=== PATIENT | male | born 1980 | race Caucasian/White ===

== ENCOUNTER 2020-01-01 16:45 | Inpatient (IN) ==
[2020-01-01] MEDS ORDERED: IOPAMIDOL 100 ML BOTTLE IV ONE (16:46)
[2020-01-01] MEDS ORDERED: ONDANSETRON 4 MG/2 ML VIAL IV ONE (17:10)
[2020-01-01] MEDS ORDERED: 0.9 % SODIUM CHLORIDE 2,000 ML IV ONE (17:10)
[2020-01-01] MEDS ORDERED: PANTOPRAZOLE 40 MG VIAL IV ONE ×2 (17:10→17:42)
--- NOTE | 2020-01-01 17:13 | Emergency Department Note ---
Abdominal Pain HPI General Chief Complaint: Abdominal Pain Stated Complaint: abd pain, nausea, vomiting, black stools Time Seen by Provider: 01/01/20 17:01 Source: patient Mode of arrival: ambulatory Limitations: no limitations History of Present Illness HPI Narrative: Narrative: 39-year-old male comes in complaining of severe central abdominal pain starting today. He has had dark stools but not clear if it was melena. No hematochezia. Vomiting as well with green bilious vomit. He did have a few drinks last night but he typically has a few drinks every week. History of chronic kidney disease and type 2 diabetes noted on his chart. He does see nephrology. Denies trauma. Denies fever recent illness. Denies previous internal belly surgery except panniculectomy after substantial weight loss Related Data Previous Rx's Medication Instructions Recorded albuterol sulfate 90 mcg/actuation 2 inh INHALATION Q4H PRN #1 g 10/06/17 aerosol inhaler Allergies Allergy/AdvReac Type Severity Reaction Status Date / Time adhesive tape Allergy Intermediate Rash Verified 01/01/20 16:55 Review of Systems ROS ROS Narrative: Narrative: All systems ED: reviewed and negative except as stated. [facility] Narrative Patient History Narrative: Narrative: Medical/Surgical/Family History All Active Problems (Updated 01/01/20 @ 19:26 by Franklyn Villalpando MD) SBO (small bowel obstruction) (Acute) Persistent proteinuria (Chronic) Visit for suture removal (Acute) Chronic kidney disease, stage 2 (mild) (Chronic) Chronic gastritis (Acute) Cyclical vomiting (Acute) Sinusitis (Acute) Dizziness (Acute) Hypotension (Acute) Fatty liver (Acute) Infected wound (Acute) Anxiety (Acute) Methicillin resistant Staphylococcus aureus infection (Acute) Cellulitis (Acute) Wound healing, delayed (Acute) Postoperative pain (Acute) Accidental drug ingestion (Acute) Dizziness on standing (Acute) Strain of mid-back (Acute) Encounter for Health Maintenance Examination in Adult (Chronic) Numbness and tingling in both hands (Chronic) Foot pain, bilateral (Chronic) Nausea & vomiting (Chronic) Right hand pain (Acute) Migraine (Acute) Gastroenteritis (Acute) GERD (gastroesophageal reflux disease) (Acute) Abdominal pain (Acute) Bloody stools (Acute) High potassium (Chronic) Tobacco abuse (Chronic) Vitamin D deficiency (Chronic) Abdominal pain (Chronic) Disorder of back (Chronic) Knee pain (Chronic) Derangement of knee (Chronic) GERD (gastroesophageal reflux disease) (Chronic) Moderate persistent asthma (Chronic) Allergic rhinitis (Chronic) 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) Benign hypertension (Chronic) Partial seizure (Chronic) Morbid obesity (Chronic) Hyperlipidemia (Chronic) Type II diabetes mellitus (Chronic) Hypothyroidism (Chronic) Low back strain (Chronic) Medical History (Updated 01/01/20 @ 19:26 by Franklyn Villalpando MD) Abdominal pain (Chronic) Abscess (Resolved) Abscess (Resolved) Abscess (Resolved) Abscess and cellulitis (Resolved) Abscess of skin and subcutaneous tissue (Resolved) Abscess of skin or subcutaneous tissue (Resolved) Allergic rhinitis (Chronic) Anal fissure (Resolved) Arthralgia of right knee (Resolved) Benign hypertension (Chronic) Bronchitis (Resolved) Chest pain (Resolved) Contusion (Resolved) Contusion of ribs (Resolved) Costalchondritis (Resolved) Costochondritis (Resolved) Derangement of knee (Chronic) Disorder of back (Chronic) Eczema (Resolved) Encounter for Health Maintenance Examination in Adult (Chronic) 06/22/17 Facial ringworm (Resolved) Foot pain, bilateral (Chronic) Gastroenteritis (Resolved) GERD (gastroesophageal reflux disease) (Chronic) High potassium (Chronic) Hyperlipidemia (Chronic) Hypothyroidism (Chronic) Knee pain (Chronic) Low back strain (Chronic) Lumbar spine strain (Resolved) Moderate persistent asthma (Chronic) Morbid obesity (Chronic) Nausea & vomiting (Chronic) Nausea and vomiting in adult patient (Resolved) Non-cardiac chest pain (Resolved) Numbness and tingling in both hands (Chronic) Partial seizure (Chronic) Sinusitis (Resolved) Symptomatic hypotension (Resolved) Type II diabetes mellitus (Chronic) Upper respiratory infection (Resolved) Urticaria (Resolved) 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) Vitamin D deficiency (Chronic) Surgical History (Updated 01/01/20 @ 19:26 by Franklyn Villalpando MD) History of colonoscopy (Chronic 11/27/16) No pertinent past surgical history (Inactive) Status post panniculectomy (Acute) Family History Other No pertinent family history Social History Smoking Status: Current every day smoker Alcohol Intake Frequency: holiday/special occasion only Substance Use: marijuana Exam Narrative Narrative: Narrative: Writhing in pain clutching his stomach. No diaphoresis. He is alert oriented able to answer questions appropriately. No nasal discharge or congestion. Oropharynx is pink and moist. No dysarthria. Heart is regular rate and rhythm. No murmur appreciated. Lungs are clear to auscultation bilate rally without wheezes rales rhonchi or respiratory distress. Abdomen is firm as he is tightening it. I cannot get him to relax. Some guarding. Is difficult to get a good abdomen exam on him secondary to patient cooperation. No pedal edema. +2 radial pulse. General Limitations: no limitations Course Vital Signs Vital signs: Vital Signs Temperature 98.6 F 01/01/20 16:49 Pulse Rate 92 H 01/01/20 16:49 Respiratory Rate 24 H 01/01/20 16:49 Blood Pressure 150/106 01/01/20 16:49 Pulse Oximetry (%) 98 01/01/20 16:49 Temperature 98.6 F 01/01/20 16:49 Pulse Rate 75 01/01/20 19:02 Respiratory Rate 16 01/01/20 19:02 Blood Pressure 136/82 01/01/20 19:02 Pulse Oximetry (%) 93 01/01/20 19:02 [facility] MDM Narrative Medical decision making narrative: Narrative: He does seem to be in significant abdominal pain. I am unable to get a good exam secondary to patient cooperation. Start IV fluids Dilaudid for pain and Zofran for nausea. We will go ahead and get CT scan of the abdomen pelvis and laboratory for work-up. If his laboratory shows evidence of GI bleed we will do a rectal exam. At this time we will give him Protonix and start Protonix drip-as gastritis ulcer is leading differential. Other items in the differential include bowel obstruction pancreatitis malignancy liver disease gallbladder disease etc. No leukocytosis or anemia. BUN is stable comparable to previous-no evidence of GI bleed. CT scan shows small bowel obstruction-it is noted the patient has no history of prior belly surgeries. Will consult surgery Discussed the case with Dr. Tiburcio Hinton. He recommended NG tube. He will place orders and accepted the patient for further care and evaluation in the hospital. He plans on seeing the patient tomorrow morning or earlier if needed. I discussed the situation with the patient as well. He is agreeable with coming in the hospital. He continues to be in pain Lab Data Lab results reviewed: Yes I reviewed the patient's lab results. Result diagrams: 01/01/20 17:23 01/01/20 17: Labs: Lab Results 01/01/20 01/01/20 01/01/20 Range/Units 17: 17: 17: WBC 10.2 (4.50-11.00) K/mcL RBC 5.40 (4.63-6.08) M/mcL Hgb 16.8 (13.7-17.5) g/dL Hct 48.5 (40.1-51.0) % MCV 89.8 (80.0-100.0) fL MCH 31.1 (26.0-34.0) pg MCHC 34.6 (31.0-36.0) g/dL RDW 12.9 (11.5-14.5) % Plt Count 259 (140-440) K/mcL MPV 9.5 (7.4-10.4) fL Gran % 65.6 (38.0-78.0) % Lymph % (Auto) 22.6 (15.5-49.0) % Crawford % (Auto) 10.4 (1.0-12.0) % Eos % (Auto) 0.9 (0.0-7.0) % Baso % (Auto) 0.5 (0.0-2.0) % Gran # 6.66 (1.80-8.00) K/mcL Lymph # (Auto) 2.29 (1.50-4.80) K/mcL Crawford # (Auto) 1.06 H (0.10-0.90) K/mcL Eos # (Auto) 0.09 (0.00-0.70) K/mcL Baso # (Auto) 0.05 (0.00-0.30) K/mcL VBG Lactic Acid 0.8 (0.5-2.0) mmol/L Sodium 137 (133-145) mmol/L Potassium 3.8 (3.3-5.1) mmol/L Chloride 97 (96-108) mmol/L Carbon Dioxide 26 (22-30) mmol/L Anion Gap 14.0 (8-16) BUN 22 H (6-20) mg/dl Creatinine 1.3 H (0.7-1.2) mg/dl GFR Calculation 69 Glucose 100 (70-105) mg/dL Calcium 9.6 (8.6-10.4) mg/dl Total Bilirubin 0.9 (0.0-1.0) mg/dL AST 34 (0-37) U/l ALT 28 (0-40) U/l Alkaline Phosphatase 70 (39-117) U/L Total Protein 7.2 (5.9-8.4) gm/dL Albumin 4.2 (3.2-5.2) gm/dL Globulin 3.0 (2.2-3.7) gm/dL Albumin/Globulin Ratio 1.4 (1.0-2.3) Amylase 70 (28-100) U/L Lipase 18 (7-60) U/L Radiology Data Radiology results reviewed: Yes I reviewed the patient's radiology results. Radiology results narrative: CT scan of the abdomen pelvis shows small bowel obstruction with transition point in the jejunum Discharge Plan Patient/Caregiver Discharge Instructions Pt seen by TEACHING SUPERVISOR/PA only: No Clinical Impression: SBO (small bowel obstruction) Patient Disposition: Xfer As Inpt ([facility]) Condition: Fair Follow up with: César Gambino DO [Primary Care Provider] - Prescriptions: No Action albuterol sulfate 90 mcg/actuation HFA aerosol inhaler 2 inh INHALATION Q4H PRN (Reason: Shortness Of Breath Or Wheezing) Qty: 1 RF: 6
[2020-01-01] MEDS ORDERED: PANTOPRAZOLE 80 MG in 0.9 % SODIUM CHLORIDE 100 ML IV SCH (17:15)
[2020-01-01] MEDS ORDERED: 0.9 % SODIUM CHLORIDE 100 ML IV ONE ×2 (17:35→20:21)
[2020-01-01 17:41] LABS: Basophils # (Auto) 0.05 K/mcL (0.00-0.30); Basophils % (Auto) 0.5 % (0.0-2.0); Eosinophils # (Auto) 0.09 K/mcL (0.00-0.70); Eosinophils % (Auto) 0.9 % (0.0-7.0); Granulocytes % (Auto) 65.6 % (38.0-78.0); Hematocrit 48.5 % (40.1-51.0); Hemoglobin 16.8 g/dL (13.7-17.5); Lymphocytes # (Auto) 2.29 K/mcL (1.50-4.80); Lymphocytes % (Auto) 22.6 % (15.5-49.0); Mean Cell Volume 89.8 fL (80.0-100.0); Mean Corpuscular HGB Conc 34.6 g/dL (31.0-36.0); Mean Platelet Volume 9.5 fL (7.4-10.4); Monocytes # (Auto) 1.06 K/mcL (0.10-0.90); Monocytes % (Auto) 10.4 % (1.0-12.0); Platelet Count 259 K/mcL (140-440); Red Cell Distribution Width 12.9 % (11.5-14.5); WBC 10.2 K/mcL (4.50-11.00)
[2020-01-01] MEDS: HYDROmorphone 0.5 MG/0.5 ML SYRINGE IV PRN ×3 (17:44→19:45)
[2020-01-01 17:57] LABS: ALT/SGPT 28 U/l (0-40); AST/SGOT 34 U/l (0-37); Albumin 4.2 gm/dL (3.2-5.2); Albumin/Globulin Ratio 1.4 (1.0-2.3); Alkaline Phosphatase 70 U/L (39-117); Amylase 70 U/L (28-100); Bilirubin,Total 0.9 mg/dL (0.0-1.0); Blood Urea Nitrogen 22 mg/dl (6-20); Calcium 9.6 mg/dl (8.6-10.4); Carbon Dioxide 26 mmol/L (22-30); Chloride 97 mmol/L (96-108); Glomerular Filtration Rate 69; Glucose 100 mg/dL (70-105)
--- NOTE | 2020-01-01 18:35 | Cat Scan Report ---
INDICATION: severe abdominal pain. bilious vomit.melena COMPARISON: Previous CT scan dated 10/11/2016 TECHNIQUE: Axial images were obtained through the abdomen and pelvis. Sagittally and coronally reformatted images. 70 mL Isovue 370 injected intravenously. Oral contrast material was not administered FINDINGS: Lung bases:Negative. No pulmonary parenchymal nodule. No pleural fluid or pericardial fluid Liver:Negative. No focal intrahepatic mass. No focal abnormality. Liver contour is smooth. No evidence for cirrhosis Gallbladder, bilary:No calcified gallstones. No gallbladder wall thickening. No dilated intra or extrahepatic bile ducts. Spleen:No splenomegaly. Normal enhancement of splenic and portal veins. Pancreas:No pancreatic mass. No peripancreatic abnormality Adrenal glands:Negative Kidneys, ureters, bladder:No solid or cystic renal mass. No hydronephrosis. No obstructing calculi. There is no hydroureter. No ureteral stone No bladder calculi or detectable mass Gastrointestinal:Mildly dilated fluid-filled stomach. Duodenum is dilated and fluid-filled. The jejunum is also dilated and fluid filled. Jejunum measures approximately 4.5 cm in cross-sectional diameter. The ileum is collapsed. Transitional point is difficult to identify. There is small bowel feces within the jejunum. I believe the transition point is just to the right of midline in the lower abdomen. There is no evidence for closed loop obstruction. No findings of bowel ischemia. Normal enhancement of the small bowel wall is demonstrated. I'm not given a history of previous surgery. Clinical correlation is necessary. Colon is normal. No colonic dilatation. There is fecal material within the colon. No diverticulitis. No diverticular abscess. Appendix: The appendix is not well visualized. No evidence for appendicitis Vascular:Negative abdominal aorta. Superior mesenteric artery and celiac trunk are normal. Normal opacification of the inferior mesenteric artery Lymphatic:No retroperitoneal or mesenteric adenopathy Mesentery, peritoneum: No free intraperitoneal fluid. No mesenteric or retroperitoneal mass. There is no pneumoperitoneum. Reproductive:Prostate is not enlarged Musculoskeletal:No acute compression fracture. Sacrum and pelvis are negative. Hips are negative IMPRESSION: 1. Small bowel obstruction with dilated jejunum and small bowel feces sign 2. Transition point appears to be just to the right of midline lower abdomen. Clinical correlation for previous surgery recommended 3. No closed-loop obstruction. No evidence for bowel ischemia. 4. No free pelvic fluid. No pneumoperitoneum The exam was performed using radiation dose optimization techniques including, but not limited to, automated exposure control, adjustment of the mA and/or kV according to patient size and use of iterative reconstruction technique. Interpreted and Authenticated by: Saul Khan 01/01/20
[2020-01-01] MEDS ORDERED: OXYMETAZOLINE 1 SPRAY BOTTLE NAS PRN (20:14)
[2020-01-01] MEDS ORDERED: LIDOCAINE JEL 2% 1 TUBE 5ML TOPICAL ONE (20:15)
[2020-01-01] MEDS ORDERED: LORazepam 2 MG/ML VIAL IV ONE (20:48)
[2020-01-01] MEDS ORDERED: PROCHLORPERAZINE 10 MG/2 ML VIAL IV PRN (20:50)
[2020-01-01] MEDS ORDERED: LORazepam 2 MG/ML VIAL IV PRN ×2 (20:50→21:30)
[2020-01-01] MEDS ORDERED: METHOCARBAMOL 1,000 MG/10 ML VIAL IV PRN (20:50)
[2020-01-01] MEDS ORDERED: LEVOFLOXACIN 750 MG/150 ML BAG IV SCH (21:30)
[2020-01-01] MEDS ORDERED: ONDANSETRON 4 MG/2 ML VIAL IV PRN (21:30)
[2020-01-01] MEDS ORDERED: ALBUTEROL SULFATE 200 PUFF INHALER INH PRN (21:37)
[2020-01-01 21:45] LABS: Appearance,Urine CLEAR; Bacteria,Urine 0 /hpf (0); Bilirubin,Urine NEG (NEG); Color,Urine YELLOW; Culture Indicated,Urine NO; Glucose,Urine (UA) NEGATIVE (NEG); Ketones,Urine 5/TR mg/dL (NEG); Leukocyte Esterase,Urine NEG /uL (NEG); Nitrate,Urine NEG (NEG); Protein,Urine >=500 mg/dL (NEG); Urine Blood 0.03 mg/dL (<0.03); Urine RBC 5 /hpf (0-1); Urine Squamous Epithelial Cell < 1 /hpf (0-4); Urine WBC 1 /hpf (0-4); Urobilinogen,Urine NEG (NEG)
[2020-01-01] MEDS: LEVOFLOXACIN 750 MG/150 ML BAG IV SCH (22:06)
[2020-01-01] MEDS: 0.9 % SODIUM CHLORIDE 1,000 ML IV SCH (22:06)
[2020-01-01 22:08] LABS: Amphetamine Screen,Urine NONE DETECTED (NONDETECTED); Barbiturate Screen,Urine NONE DETECTED (NONDETECTED); Benzodiazepines Screen,Urine NONE DETECTED (NONDETECTED); Cannabinoid Screen,Urine SUSPECT POSITIVE (NONDETECTED); Cocaine Screen,Urine SUSPECT POSITIVE (NONDETECTED); Opiate Screen,Urine SUSPECT POSITIVE (NONDETECTED); Oxycodone, Urine Screen NONE DETECTED (NONDETECTED); Phencyclidine Screen,Urine NONE DETECTED (NONDETECTED)
[2020-01-01] MEDS ORDERED: BENZOCAINE 1 SPRAY BOTTLE TOPICAL PRN (22:10)
[2020-01-01] MEDS ORDERED: HYDROmorphone 1 MG/ML SYRINGE ONE (22:27)
[2020-01-01] MEDS: HYDROmorphone 1 MG/ML SYRINGE IV PRN (22:40)
[2020-01-01] MEDS: METOCLOPRAMIDE 10 MG/2 ML VIAL IV SCH (23:47)
[2020-01-02] MEDS ORDERED: HYDROmorphone 1 MG/ML SYRINGE ONE (03:57)
[2020-01-02] MEDS: HYDROmorphone 1 MG/ML SYRINGE IV PRN ×8 (04:02→23:28)
[2020-01-02] MEDS: 0.9 % SODIUM CHLORIDE 1,000 ML IV SCH ×3 (04:02→18:47)
[2020-01-02] MEDS: METOCLOPRAMIDE 10 MG/2 ML VIAL IV SCH ×4 (05:39→23:29)
--- NOTE | 2020-01-02 06:06 | XRay Report ---
INDICATION: for post NG placement TECHNIQUE: Supine abdomen. COMPARISON: Previous CT scan dated 01/01/2020. Previous abdomen dated 04/28/2017 FINDINGS:Esophagogastric tube with its tip in the stomach. There is dilated gas-filled small bowel in the upper abdomen. IMPRESSION: Esophagogastric tube in the stomach Interpreted and Authenticated by: Saul Khan 01/02/20
[2020-01-02 06:10] LABS: Basophils # (Auto) 0.05 K/mcL (0.00-0.30); Basophils % (Auto) 0.6 % (0.0-2.0); Eosinophils # (Auto) 0.24 K/mcL (0.00-0.70); Eosinophils % (Auto) 2.9 % (0.0-7.0); Granulocytes % (Auto) 63.9 % (38.0-78.0); Hematocrit 44.1 % (40.1-51.0); Hemoglobin 14.6 g/dL (13.7-17.5); Lymphocytes % (Auto) 20.6 % (15.5-49.0); Mean Cell Volume 93.8 fL (80.0-100.0); Mean Corpuscular HGB Conc 33.1 g/dL (31.0-36.0); Mean Platelet Volume 9.5 fL (7.4-10.4); Monocytes # (Auto) 0.99 K/mcL (0.10-0.90); Platelet Count 206 K/mcL (140-440); Red Cell Distribution Width 13.1 % (11.5-14.5); WBC 8.2 K/mcL (4.50-11.00)
[2020-01-02] MEDS: PANTOPRAZOLE 40 MG VIAL IV SCH ×2 (07:04→21:44)
[2020-01-02 07:13] LABS: ALT/SGPT 20 U/l (0-40); AST/SGOT 22 U/l (0-37); Albumin 3.4 gm/dL (3.2-5.2); Albumin/Globulin Ratio 1.4 (1.0-2.3); Alkaline Phosphatase 53 U/L (39-117); Bilirubin,Direct 0.2 mg/dL (0.0-0.3); Bilirubin,Total 0.9 mg/dL (0.0-1.0); Calcium 8.4 mg/dl (8.6-10.4); Carbon Dioxide 24 mmol/L (22-30); Chloride 103 mmol/L (96-108); Globulin 2.4 gm/dL (2.2-3.7); Glomerular Filtration Rate 85; Glucose 96 mg/dL (70-105); Lactate Dehydrogenase 168 U/L (94-250); Phosphorous 2.7 mg/dL (2.7-4.5); Triglycerides 83 mg/dl (<150); Uric Acid 6.4 mg/dL (2.5-8.0)
[2020-01-02 07:17] LABS: Blood Urea Nitrogen 17 mg/dl (6-20)
[2020-01-02] MEDS ORDERED: DIATRIZOATE MEGLU/DIATRIZO SOD 30 ML BOTTLE PO ONE ×2 (09:43→17:05)
[2020-01-02] MEDS ORDERED: NICOTINE 21 MG PATCH TOPICAL SCH (10:00)
--- NOTE | 2020-01-02 14:23 | General Surg History&Physical ---
HPI History of Present Illness Patient information: Note initiated : 01/02/20 at 2:11 pm Service Date, if different from initiated Date: [facility] Patient: Yinka Lee 39 y/o M admitted on 01/01/20 for abd pain, nausea, vomiting, black stools. Chief Complaint: [] Chief complaint: Crampy abdominal pain with nausea and vomiting History of present illness: Mr. Lee is a 39 year old M admitted with bowel obstruction. The patient had onset of mid abdominal pain with associated bloating on Thursday. It became progressively worse and he has had nausea with vomiting since Thursday. His last bowel movement was dark and tarry on Thursday morning. He has not had recent passage of flatus. Patient seen in the emergency room and CT suggests obstruction of the distal jejunum with decompression of the ileum. He is in severe distress and will have a trial at nasogastric decompression with small bowel follow-through. He has not had any intra-abdominal operations. He does have a history of severe weight loss with over 400 pounds being lost. He had a partial abdominoplasty for a large pannus but no other surgery. Review of Systems All systems: reviewed and no additional remarkable complaints except as stated (No complaints except for that which is noted in the history of present illness) PFSH PFSH All Active Problems SBO (small bowel obstruction) (Acute) Persistent proteinuria (Chronic) Visit for suture removal (Acute) Chronic kidney disease, stage 2 (mild) (Chronic) Chronic gastritis (Acute) Cyclical vomiting (Acute) Sinusitis (Acute) Dizziness (Acute) Hypotension (Acute) Fatty liver (Acute) Infected wound (Acute) Anxiety (Acute) Methicillin resistant Staphylococcus aureus infection (Acute) Cellulitis (Acute) Wound healing, delayed (Acute) Postoperative pain (Acute) Accidental drug ingestion (Acute) Dizziness on standing (Acute) Strain of mid-back (Acute) Encounter for Health Maintenance Examination in Adult (Chronic) Numbness and tingling in both hands (Chronic) Foot pain, bilateral (Chronic) Nausea & vomiting (Chronic) Right hand pain (Acute) Migraine (Acute) Gastroenteritis (Acute) GERD (gastroesophageal reflux disease) (Acute) Abdominal pain (Acute) Bloody stools (Acute) High potassium (Chronic) Tobacco abuse (Chronic) Vitamin D deficiency (Chronic) Abdominal pain (Chronic) Disorder of back (Chronic) Knee pain (Chronic) Derangement of knee (Chronic) GERD (gastroesophageal reflux disease) (Chronic) Moderate persistent asthma (Chronic) Allergic rhinitis (Chronic) 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) Benign hypertension (Chronic) Partial seizure (Chronic) Morbid obesity (Chronic) Hyperlipidemia (Chronic) Type II diabetes mellitus (Chronic) Hypothyroidism (Chronic) Low back strain (Chronic) Medical History Abdominal pain (Chronic) Abscess (Resolved) Abscess (Resolved) Abscess (Resolved) Abscess and cellulitis (Resolved) Abscess of skin and subcutaneous tissue (Resolved) Abscess of skin or subcutaneous tissue (Resolved) Allergic rhinitis (Chronic) Anal fissure (Resolved) Arthralgia of right knee (Resolved) Benign hypertension (Chronic) Bronchitis (Resolved) Chest pain (Resolved) Contusion (Resolved) Contusion of ribs (Resolved) Costalchondritis (Resolved) Costochondritis (Resolved) Derangement of knee (Chronic) Disorder of back (Chronic) Eczema (Resolved) Encounter for Health Maintenance Examination in Adult (Chronic) 06/22/17 Facial ringworm (Resolved) Foot pain, bilateral (Chronic) Gastroenteritis (Resolved) GERD (gastroesophageal reflux disease) (Chronic) High potassium (Chronic) Hyperlipidemia (Chronic) Hypothyroidism (Chronic) Knee pain (Chronic) Low back strain (Chronic) Lumbar spine strain (Resolved) Moderate persistent asthma (Chronic) Morbid obesity (Chronic) Nausea & vomiting (Chronic) Nausea and vomiting in adult patient (Resolved) Non-cardiac chest pain (Resolved) Numbness and tingling in both hands (Chronic) Partial seizure (Chronic) Sinusitis (Resolved) Symptomatic hypotension (Resolved) Type II diabetes mellitus (Chronic) Upper respiratory infection (Resolved) Urticaria (Resolved) 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) Vitamin D deficiency (Chronic) Surgical History History of colonoscopy (Chronic 11/27/16) No pertinent past surgical history (Inactive) Status post panniculectomy (Acute) Family History (Updated 01/02/20 @ 14:17 by Allie Hinton MD) Mother No problems noted. Father No pertinent family history Social History (Updated 01/02/20 @ 14:18 by Allie Hinton MD) smoking status: Current every day smoker tobacco type: cigarettes per day: 8 alcohol intake frequency: holiday/special occasion only substance use type: marijuana MEDS/ALLERGIES Home Medications and Allergies Home Medications Medication Instructions Recorded Confirmed Type albuterol sulfate 90 mcg/actuation 2 inh INHALATION Q4H PRN #1 g 10/06/17 01/01/20 Rx aerosol inhaler magnesium citrate [Citrate of 300 ml PO QDAY PRN #296 ml 01/04/20 Rx Magnesia] oxycodone 10 mg PO QID PRN #60 tab 01/04/20 Rx Allergies Allergy/AdvReac Type Severity Reaction Status Date / Time adhesive tape Allergy Intermediate Rash Verified 01/01/20 16:55 Physical Examination Vital Signs Vital signs: Temp Pulse Resp BP Pulse Ox 97.9 F 78 20 155/97 97 01/02/20 12:00 01/02/20 12:00 01/02/20 12:00 01/02/20 12:00 01/02/20 12:00 General physical appearance General physical exam: well developed, well nourished, severe distress and severe pain Eyes Eye exam: PERRL and normal ocular movement; negative deviation and loss of movement ENT ENT exam: normal pinna, normal nares, normal mucosa, no hearing loss and no congestion; negative decreased hearing Head Head exam IM: Present atraumatic, normal inspection and normocephalic Neck Neck exam: no masses, no bruits, trachea midline, no lymphadenopathy and no venous distension Cardiovascular Cardiovascular exam IM: Present normal rate and rhythm, RRR, +S1 and +S2; Absent JVD Cardiovascular: Bilateral lower extremity varicosities much worse on the right than on the left Respiratory Respiratory exam: normal expansion, normal respiratory effort, clear to percussion and clear to auscultation Abdomen Abdomen: Present soft, tender and bowel sounds (Hyperactive bowel sounds) Integumentary Integumentary: Present no rash, no growths, no abnormal pigmentation and other (Redundant skin and extremities and trunk due to weight loss) Neurologic Neurologic: Present normal coordination and normal sensation; Absent disoriented Musculoskeletal Musculoskeletal: Present normal gait, normal posture and other Psychiatric Psychiatric: Present oriented to time, oriented to person, oriented to place, speech is normal and memory intact Results Labs Result diagrams: 01/04/20 05:20 01/04/20 05:20 Labs: Abnormal lab results 01/01/20 01/01/20 01/01/20 Range/Units 17:23 17:23 20:10 Pierce # (Auto) 1.06 H (0.10-0.90) K/mcL BUN 22 H (6-20) mg/dl Creatinine 1.3 H (0.7-1.2) mg/dl Calcium (8.6-10.4) mg/dl Total Protein (5.9-8.4) gm/dL Urine Protein (NEG) mg/dL Urine Ketones (NEG) mg/dL Urine Occult Blood (<0.03) mg/dL Urine RBC (0-1) /hpf Urine Opiates Screen Suspect positive A (NONDETECTED) Urine Cocaine Screen Suspect positive A (NONDETECTED) U Marijuana (THC) Screen Suspect positive A (NONDETECTED) 01/01/20 01/02/20 01/02/20 Range/Units 20:11 05:15 05:15 Pierce # (Auto) 0.99 H (0.10-0.90) K/mcL BUN (6-20) mg/dl Creatinine (0.7-1.2) mg/dl Calcium 8.4 L (8.6-10.4) mg/dl Total Protein 5.8 L (5.9-8.4) gm/dL Urine Protein >=500 A (NEG) mg/dL Urine Ketones 5/tr A (NEG) mg/dL Urine Occult Blood 0.03 A (<0.03) mg/dL Urine RBC 5 H (0-1) /hpf Urine Opiates Screen (NONDETECTED) Urine Cocaine Screen (NONDETECTED) U Marijuana (THC) Screen (NONDETECTED) Diabetes panel 01/01/20 01/02/20 Range/Units 17:23 05:15 Sodium 137 139 (133-145) mmol/L Potassium 3.8 3.5 (3.3-5.1) mmol/L Chloride 97 103 (96-108) mmol/L Carbon Dioxide 26 24 (22-30) mmol/L BUN 22 H 17 (6-20) mg/dl Creatinine 1.3 H 1.1 (0.7-1.2) mg/dl Glucose 100 96 (70-105) mg/dL Calcium 9.6 8.4 L (8.6-10.4) mg/dl AST 34 22 (0-37) U/l ALT 28 20 (0-40) U/l Alkaline Phosphatase 70 53 (39-117) U/L Total Protein 7.2 5.8 L (5.9-8.4) gm/dL Albumin 4.2 3.4 (3.2-5.2) gm/dL Triglycerides 83 (<150) mg/dl Calcium panel 01/01/20 01/02/20 Range/Units 17:23 05:15 Calcium 9.6 8.4 L (8.6-10.4) mg/dl Phosphorus 2.7 (2.7-4.5) mg/dL Albumin 4.2 3.4 (3.2-5.2) gm/dL Pituitary panel 01/01/20 01/02/20 Range/Units 17: 05:15 Sodium 137 139 (133-145) mmol/L Potassium 3.8 3.5 (3.3-5.1) mmol/L Chloride 97 103 (96-108) mmol/L Carbon Dioxide 26 24 (22-30) mmol/L BUN 22 H 17 (6-20) mg/dl Creatinine 1.3 H 1.1 (0.7-1.2) mg/dl Glucose 100 96 (70-105) mg/dL Calcium 9.6 8.4 L (8.6-10.4) mg/dl Adrenal panel 01/01/20 01/02/20 Range/Units 17:23 05:15 Sodium 137 139 (133-145) mmol/L Potassium 3.8 3.5 (3.3-5.1) mmol/L Chloride 97 103 (96-108) mmol/L Carbon Dioxide 26 24 (22-30) mmol/L BUN 22 H 17 (6-20) mg/dl Creatinine 1.3 H 1.1 (0.7-1.2) mg/dl Glucose 100 96 (70-105) mg/dL Calcium 9.6 8.4 L (8.6-10.4) mg/dl Total Bilirubin 0.9 0.9 (0.0-1.0) mg/dL AST 34 22 (0-37) U/l ALT 28 20 (0-40) U/l Alkaline Phosphatase 70 53 (39-117) U/L Total Protein 7.2 5.8 L (5.9-8.4) gm/dL Albumin 4.2 3.4 (3.2-5.2) gm/dL All other labs normal. A/P Assessment and plan (1) SBO (small bowel obstruction): Status: Acute (2) Chronic kidney disease, stage 2 (mild): Status: Chronic (3) Anxiety: Status: Acute (4) GERD (gastroesophageal reflux disease): Status: Acute (5) Type II diabetes mellitus: Status: Chronic Qualifiers: Diabetes mellitus complication status: without complication Diabetes mellitus terminal manager insulin use: without mcc use Qualified Code(s): E11.9 - Type 2 diabetes mellitus without complications Narrative A/P Narrative: Patient will have nasogastric decompression Small bowel follow-through will be done on 02 January 2020 If this is not successful he will have exploratory laparotomy Time Spent With Patient Time: Total time spent is greater than 50% in coordination of care (as documented) at patient's floor/unit and/or counseling patient:
--- NOTE | 2020-01-02 14:25 | General Surgery Progress Note ---
SUBJECTIVE Subjective Patient information: Note initiated : 01/02/20 at 2:23 pm Service Date, if different from initiated Date: [] Patient: Yinka Lee 39 y/o M admitted on 01/01/20 for abd pain, nausea, vomiting, black stools. Chief Complaint: [] Interval history: Small bowel follow-through shows no transit through jejunum after 4hours. The patient had emesis of over 2 L of fluid. He is counseled for urgent laparotomy which will be performed as soon as possible. Constitutional Vitals: Vital Signs Temp Pulse Resp BP Pulse Ox 97.9 F 78 20 155/97 97 01/02/20 12:00 01/02/20 12:00 01/02/20 12:00 01/02/20 12:00 01/02/20 12:00 Period Temp Pulse Resp BP Sys/Madrid Pulse Ox Last 24 Hr 97.9 F-98.8 F 62-92 0-24 134-175/79-117 73-100 Intake and Output 01/02/20 01/02/20 01/02/20 05:59 13:59 21:59 Intake Total 1140 60 Output Total 1900 955 Balance -760 -895 Weight 251 lb 8 oz Intake & Output: Intake & Output 01/02/20 01/02/20 01/02/20 05:59 13:59 21:59 Intake Total 1140 60 Output Total 1900 955 Balance -760 -895 Weight 251 lb 8 oz Intake: IV 890 Sodium Chloride 0.9% 1,000 ml @ 890 150 mls/hr IV .Q6H40M [facility] Rx#: [id number] Oral 250 60 Tube Feeding 0 0 Output: Gastric Drainage 500 480 Craig-Sump 500 480 Void Amount 1400 475 Other: Urine Appearance Clear Urine Color Bright Yellow Straw Urine Odor Normal Normal A/P Assessment and plan (1) SBO (small bowel obstruction): Status: Acute (2) Chronic kidney disease, stage 2 (mild): Status: Chronic (3) GERD (gastroesophageal reflux disease): Status: Chronic Qualifiers: Esophagitis presence: without esophagitis Qualified Code(s): K21.9 - Gastro-esophageal reflux disease without esophagitis Narrative A/P Narrative: Patient is counseled for exploratory laparotomy which will be performed later this afternoon. Time Spent With Patient Time: Total time spent is greater than 50% in coordination of care (as documented) at patient's floor/unit and/or counseling patient:
[2020-01-02] MEDS ORDERED: metroNIDAZOLE 500 MG/100 ML BAG IV SCH (15:00)
[2020-01-02] MEDS ORDERED: DEXAMETHASONE 10 MG/ML VIAL IV ONE (15:33)
[2020-01-02] MEDS ORDERED: LIDOCAINE HCL/PF 100 MG/5 ML SYRINGE IV ONE (15:33)
[2020-01-02] MEDS ORDERED: GLYCOPYRROLATE 0.2 MG/ML VIAL IV ONE (15:33)
[2020-01-02] MEDS ORDERED: KETAMINE 100 MG/ML ML IV ONE (15:33)
[2020-01-02] MEDS ORDERED: ROCURONIUM 10 MG/ML ML IV ONE (15:33)
[2020-01-02] MEDS ORDERED: PROPOFOL 200 MG/20 ML VIAL IV ONE (15:33)
[2020-01-02] MEDS ORDERED: ONDANSETRON 4 MG/2 ML VIAL IV ONE (15:33)
[2020-01-02] MEDS ORDERED: MIDAZOLAM 2 MG/2 ML VIAL IV ONE (15:33)
[2020-01-02] MEDS ORDERED: fentaNYL 100 MCG/2 ML VIAL IV ONE (15:33)
--- NOTE | 2020-01-02 15:37 | XRay Report ---
INDICATION: Follow-up with small bowel obstruction TECHNIQUE: Water-soluble contrast material was placed in the stomach via a nasogastric tube. Serial imaging to 4 hours post ingestion performed COMPARISON: Previous CT scan dated 01/01/2020 FINDINGS: Stomach is mildly distended. Small bowel is distended with delayed passage of contrast material. Jejunum measures 6 cm in cross-sectional diameter. At 4 hours post ingestion entire small bowel is not opacified. Appearance is consistent with chemical small bowel obstruction. There is no contrast material within the colon. IMPRESSION: Mechanical small bowel obstruction is Interpreted and Authenticated by: Saul Khan 01/02/20
[2020-01-02] MEDS ORDERED: FLUMAZENIL 0.1 MG/ML ML IV PRN ×2 (16:13→17:05)
[2020-01-02] MEDS ORDERED: NALOXONE HCL 0.4 MG/ML VIAL IV PRN ×2 (16:13→17:05)
[2020-01-02] MEDS ORDERED: METHOCARBAMOL 1,000 MG/10 ML VIAL IV PRN ×2 (16:13→17:05)
[2020-01-02] MEDS ORDERED: METOPROLOL TARTRATE 5 MG/5 ML VIAL IV PRN ×2 (16:13→17:05)
[2020-01-02] MEDS ORDERED: IPRATROPIUM/ALBUTEROL 3 ML AMPUL.NEB NEB PRN ×2 (16:13→17:05)
[2020-01-02] MEDS ORDERED: ACETAMINOPHEN 1,000 MG/100 ML BOTTLE IV ONE (16:13)
[2020-01-02] MEDS ORDERED: LABETALOL 5 MG/ML ML IV PRN ×2 (16:13→17:05)
[2020-01-02] MEDS ORDERED: LACTATED RINGERS 250 ML IV PRN ×2 (16:13→17:05)
[2020-01-02] MEDS ORDERED: LACTATED RINGERS 1,000 ML IV SCH ×2 (16:15→17:05)
[2020-01-02] MEDS: MEPERIDINE 25 MG/ML SYRINGE IV PRN ×2 (16:45→16:50)
--- NOTE | 2020-01-02 16:47 | Brief Operative Note ---
Brief Operative Note Date of procedure: 01/02/20 Pre-op diagnosis: small bowel obstruction Post-op diagnosis: other (small bowel obstruction due to inspissated stool; no adhesions or masses of lumen) Procedure: exploratory laparotomy Grafts/Implants: No Anesthesia: GETA Findings: very thick inspissated stool of distal jejunum without evidence of structural abnormality Complications: none Surgeon: Allie Hinton Estimated blood loss (cc): 5 Specimens Removed/Pathology: none sent Condition: stable Disposition: PACU
[2020-01-02] MEDS: fentaNYL 100 MCG/2 ML VIAL IV PRN ×4 (16:50→16:56)
[2020-01-02] MEDS ORDERED: ALBUTEROL SULFATE 200 PUFF INHALER INH PRN (17:05)
[2020-01-02] MEDS ORDERED: ONDANSETRON 4 MG/2 ML VIAL IV PRN (17:05)
[2020-01-02] MEDS ORDERED: MEPERIDINE 25 MG/ML SYRINGE IV PRN (17:05)
[2020-01-02] MEDS ORDERED: IOPAMIDOL 100 ML BOTTLE IV ONE (17:05)
[2020-01-02] MEDS ORDERED: fentaNYL 100 MCG/2 ML VIAL IV PRN (17:05)
[2020-01-02] MEDS ORDERED: OXYMETAZOLINE 1 SPRAY BOTTLE NAS PRN (17:05)
[2020-01-02] MEDS ORDERED: BENZOCAINE 1 SPRAY BOTTLE TOPICAL PRN (17:05)
[2020-01-02] MEDS: METHOCARBAMOL 1,000 MG/10 ML VIAL IV PRN ×2 (17:40→23:28)
[2020-01-02] MEDS: LORazepam 2 MG/ML VIAL IV PRN ×2 (18:45→23:28)
[2020-01-02] MEDS: LEVOFLOXACIN 750 MG/150 ML BAG IV SCH (19:30)
[2020-01-02] MEDS: metroNIDAZOLE 500 MG/100 ML BAG IV SCH (23:33)
[2020-01-03] MEDS: 0.9 % SODIUM CHLORIDE 1,000 ML IV SCH ×5 (01:12→21:39)
[2020-01-03] MEDS: HYDROmorphone 1 MG/ML SYRINGE IV PRN ×9 (03:46→21:36)
[2020-01-03] MEDS: METHOCARBAMOL 1,000 MG/10 ML VIAL IV PRN (05:36)
[2020-01-03] MEDS: METOCLOPRAMIDE 10 MG/2 ML VIAL IV SCH ×3 (05:36→17:26)
[2020-01-03] MEDS: metroNIDAZOLE 500 MG/100 ML BAG IV SCH ×3 (06:04→17:30)
[2020-01-03 06:42] LABS: Basophils # (Auto) 0.02 K/mcL (0.00-0.30); Basophils % (Auto) 0.2 % (0.0-2.0); Eosinophils # (Auto) 0 K/mcL (0.00-0.70); Eosinophils % (Auto) 0 % (0.0-7.0); Granulocytes % (Auto) 80.1 % (38.0-78.0); Hematocrit 47.3 % (40.1-51.0); Hemoglobin 15.3 g/dL (13.7-17.5); Lymphocytes # (Auto) 1.16 K/mcL (1.50-4.80); Lymphocytes % (Auto) 8.8 % (15.5-49.0); Mean Cell Volume 96.5 fL (80.0-100.0); Mean Corpuscular HGB Conc 32.3 g/dL (31.0-36.0); Mean Platelet Volume 9.8 fL (7.4-10.4); Monocytes # (Auto) 1.44 K/mcL (0.10-0.90); Monocytes % (Auto) 10.9 % (1.0-12.0); Platelet Count 216 K/mcL (140-440); Red Cell Distribution Width 13.2 % (11.5-14.5); WBC 13.2 K/mcL (4.50-11.00)
[2020-01-03 07:03] LABS: Chloride 102 mmol/L (96-108)
[2020-01-03 07:04] LABS: ALT/SGPT 21 U/l (0-40); AST/SGOT 35 U/l (0-37); Albumin 3.3 gm/dL (3.2-5.2); Albumin/Globulin Ratio 1.2 (1.0-2.3); Alkaline Phosphatase 53 U/L (39-117); Bilirubin,Direct < 0.2 mg/dL (0.0-0.3); Bilirubin,Total 0.8 mg/dL (0.0-1.0); Blood Urea Nitrogen 18 mg/dl (6-20); Calcium 8.6 mg/dl (8.6-10.4); Carbon Dioxide 21 mmol/L (22-30); Globulin 2.7 gm/dL (2.2-3.7); Glomerular Filtration Rate 76; Glucose 95 mg/dL (70-105); Lactate Dehydrogenase 330 U/L (94-250); Phosphorous 3.6 mg/dL (2.7-4.5); Triglycerides 78 mg/dl (<150); Uric Acid 6.4 mg/dL (2.5-8.0)
[2020-01-03] MEDS: PANTOPRAZOLE 40 MG VIAL IV SCH ×2 (07:11→17:31)
--- NOTE | 2020-01-03 07:20 | XRay Report ---
INDICATION: f/u of small bowel obstruction TECHNIQUE: Supine and upright abdomen. COMPARISON: Preoperative small bowel study dated 01/02/2020 FINDINGS:Esophagogastric tube within the stomach. Postsurgical pneumoperitoneum. There are skin pat in a vertical midline incision. There continues to be contrast material within the small bowel. Small bowel dilatation is improved. No definite contrast material within the colon. IMPRESSION: 1. Postsurgical pneumoperitoneum 2. Improved bowel gas pattern. Contrast material is not identified within the colon Interpreted and Authenticated by: Saul Khan 01/03/20
[2020-01-03] MEDS: NICOTINE 21 MG PATCH TOPICAL SCH (09:46)
[2020-01-03] MEDS: LEVOFLOXACIN 750 MG/150 ML BAG IV SCH (09:46)
[2020-01-03] MEDS: POLYETHYLENE GLYCOL 3350 17 GM PACKET PO SCH ×4 (10:58→16:23)
--- NOTE | 2020-01-03 15:09 | General Surgery Progress Note ---
SUBJECTIVE Subjective Patient information: Note initiated : 01/03/20 at 3:02 pm Service Date, if different from initiated Date: [] Patient: Yinka Lee 39 y/o M admitted on 01/01/20 for abd pain, nausea, vomiting, black stools. Chief Complaint: [] Principal diagnosis: partial small bowel obstruction Interval history: patient states that he is improved. He states that he has passed flatus but he has not had bowel movement since surgery. He has been on MiraLAX 3 doses. He complains of some abdominal distention. His pain is not as severe as yesterday. Constitutional Vitals: Vital Signs Temp Pulse Resp BP Pulse Ox 99.7 F H 84 18 158/95 97 01/03/20 12:00 01/03/20 12:00 01/03/20 12:00 01/03/20 12:00 01/03/20 12:00 Period Temp Pulse Resp BP Sys/Madrid Pulse Ox Last 24 Hr 97.0 F-99.7 F 79-128 16-24 126-195/71-103 92-100 Intake and Output 01/03/20 01/03/20 01/03/20 05:59 13:59 21:59 Intake Total 420 2450 240 Output Total 2125 1800 Balance -1705 650 240 Weight 254 lb Patient Weight 01/04/20 05:59 Weight 254 lb Intake & Output: Intake & Output 01/03/20 01/03/20 01/03/20 05:59 13:59 21:59 Intake Total 420 2450 240 Output Total 2125 1800 Balance -1705 650 240 Weight 254 lb Intake: IV 100 1045 Sodium Chloride 0.9% 1,000 ml @ 945 150 mls/hr IV .Q6H40M COUNT INCLUDES THE [facility] Rx#: [id number] Oral 320 1405 240 Tube Feeding 0 Output: Gastric Drainage 1500 1300 [place]-Sump 1500 1300 Void Amount 625 500 Other: Urine Appearance Clear Urine Color Light Karen Dark Yellow Urine Odor Strong Head Head exam: Present atraumatic, normal inspection and normocephalic Eye Eye exam: Present EOMI and normal appearance Pupils: Present PERRL ENT ENT exam: Present normal exam, normal external ear exam and normal oropharynx Neck Neck exam: Present full ROM and normal inspection; Absent tenderness Respiratory Respiratory exam: Present normal respiratory exam and CTAB; Absent rales, rhonchi and wheezes Cardiovascular Cardiovascular exam: Present normal rate and rhythm, RRR, +S1 and +S2; Absent JVD GI/Abdominal GI/Abdominal exam: Present soft, diminished bowel sounds, distended and tenderness (moderate incisional tenderness); Absent organomegaly Extremities Exam Extremities exam: Present normal inspection and neurovascular intact; Absent pedal edema and tenderness Back Exam Back exam: Present full ROM; Absent tenderness Neurological Exam Neurological exam: Present abnormal gait, alert, CN II-XII intact, motor sensory deficit and oriented X3; Absent normal gait and reflexes normal Psychiatric Psychiatric exam: Present anxious, flat affect and normal affect Skin Skin exam: Present normal color and warm A/P Assessment and plan (1) SBO (small bowel obstruction): Status: Acute (2) Chronic kidney disease, stage 2 (mild): Status: Chronic (3) Postoperative pain: Status: Acute (4) GERD (gastroesophageal reflux disease): Status: Acute Narrative A/P Narrative: discontinue nasogastric tube Continue MiraLAX Small bowel x-rays in the morning Time Spent With Patient Time: Total time spent is greater than 50% in coordination of care (as documented) at patient's floor/unit and/or counseling patient:
[2020-01-03] MEDS: LORazepam 2 MG/ML VIAL IV PRN (22:34)
[2020-01-04] MEDS: METHOCARBAMOL 1,000 MG/10 ML VIAL IV PRN (00:10)
[2020-01-04] MEDS: METOCLOPRAMIDE 10 MG/2 ML VIAL IV SCH ×3 (00:10→11:33)
[2020-01-04] MEDS: metroNIDAZOLE 500 MG/100 ML BAG IV SCH ×3 (00:11→11:33)
[2020-01-04] MEDS: HYDROmorphone 1 MG/ML SYRINGE IV PRN ×6 (00:11→13:42)
[2020-01-04] MEDS: 0.9 % SODIUM CHLORIDE 1,000 ML IV SCH ×5 (00:20→15:22)
--- NOTE | 2020-01-04 06:40 | XRay Report ---
INDICATION: f/u of small bowel obstruction TECHNIQUE: Supine and upright abdomen. COMPARISON: Previous examinations dated 01/03/2020, 01/02/2020, 01/01/2020 FINDINGS:Esophagogastric tube in stomach. There is water-soluble contrast material within the colon from previous small bowel study dated 01/02/2020 There is small bowel gas and mild small bowel prominence. Findings may be secondary to postoperative ileus. There is no significant mechanical obstruction. There is persistent pneumoperitoneum considered postsurgical IMPRESSION: 1. Contrast material throughout the colon 2. Persistent mild prominence of the small bowel as above 3. Pneumoperitoneum likely postsurgical Interpreted and Authenticated by: Saul Khan 01/04/20
[2020-01-04 07:05] LABS: Basophils # (Auto) 0.05 K/mcL (0.00-0.30); Basophils % (Auto) 0.6 % (0.0-2.0); Eosinophils # (Auto) 0.11 K/mcL (0.00-0.70); Eosinophils % (Auto) 1.3 % (0.0-7.0); Granulocytes % (Auto) 67.8 % (38.0-78.0); Hematocrit 44.5 % (40.1-51.0); Mean Cell Volume 95.9 fL (80.0-100.0); Mean Corpuscular HGB Conc 31.5 g/dL (31.0-36.0); Mean Platelet Volume 9.7 fL (7.4-10.4); Monocytes # (Auto) 1.03 K/mcL (0.10-0.90); Monocytes % (Auto) 12.3 % (1.0-12.0); Platelet Count 195 K/mcL (140-440); RBC 4.64 M/mcL (4.63-6.08); Red Cell Distribution Width 13.2 % (11.5-14.5); WBC 8.4 K/mcL (4.50-11.00)
[2020-01-04 07:48] LABS: ALT/SGPT 15 U/l (0-40); AST/SGOT 23 U/l (0-37); Albumin/Globulin Ratio 1.2 (1.0-2.3); Alkaline Phosphatase 45 U/L (39-117); Bilirubin,Direct 0.2 mg/dL (0.0-0.3); Bilirubin,Total 0.9 mg/dL (0.0-1.0); Blood Urea Nitrogen 15 mg/dl (6-20); Calcium 8.2 mg/dl (8.6-10.4); Carbon Dioxide 25 mmol/L (22-30); Chloride 106 mmol/L (96-108); Globulin 2.5 gm/dL (2.2-3.7); Glomerular Filtration Rate 76; Glucose 101 mg/dL (70-105); Lactate Dehydrogenase 209 U/L (94-250); Triglycerides 84 mg/dl (<150); Uric Acid 5.8 mg/dL (2.5-8.0)
[2020-01-04 07:50] LABS: Phosphorous 2.2 mg/dL (2.7-4.5)
[2020-01-04] MEDS: LEVOFLOXACIN 750 MG/150 ML BAG IV SCH (08:20)
[2020-01-04] MEDS: PANTOPRAZOLE 40 MG VIAL IV SCH (08:20)
[2020-01-04] MEDS: NICOTINE 21 MG PATCH TOPICAL SCH (10:03)
[2020-01-04] MEDS ORDERED: MAGNESIUM CITRATE 300 ML ORAL.SOL PO ONE ×2 (10:34→12:00)
--- NOTE | 2020-01-04 12:11 | Operative Note ---
DATE OF OPERATION: 01/02/2020 PREOPERATIVE DIAGNOSIS: Small bowel obstruction. POSTOPERATIVE DIAGNOSIS: Small bowel obstruction due to inspissated stool and small bowel without other mechanical obstructions, no adhesions, masses, etc. PROCEDURE: Exploratory laparotomy. SURGEON: Allie Hinton M.D. DESCRIPTION OF PROCEDURE: Under general anesthesia, the patient's abdomen was prepped and draped in a sterile field. A midline incision was made. Abdomen was explored and the small bowel was eviscerated. The proximal bowel down to the distal jejunum was filled with very thick, firm, inspissated stool and the distal jejunum and the ileum were totally decompressed. There was some soft stool in the right colon, but no other abnormality was noted. The entire bowel was run from the ligament of Treitz to the ileocecal valve. Since there was no evidence of mechanical obstruction except for the stool, I gently milked the major portion of the inspissated stool down into the right colon. There did not appear to be any evidence of intraluminal obstruction and there were no palpable masses. Nasogastric tube was positioned at the stomach. Sponge, needle, instrument and blade counts were verified as correct. Fascia was closed with running #1 Prolene. Subcutaneous tissue was closed with 2-0 Monocryl. The skin was closed with pat. The patient tolerated the procedure well. He was awakened and transferred to a bed and taken to the postanesthetic care unit in stable, satisfactory condition. LCS:april Job ID: [id number] Doc ID: [id number] Allie Hinton M.D.
--- NOTE | 2020-01-04 14:00 | Discharge Summary ---
Discharge Provider Provider Patient information: Note initiated : 01/04/20 at 1:56 pm Service Date, if different from initiated Date: [] Patient: Yinka Lee 39 y/o M admitted on 01/01/20 for abd pain, nausea, vomiting, black stools. Chief Complaint: [] Date of admission: 01/01/20 21:51 Discharge date: 01/04/20 Primary care physician: César Gambino DO Admitting clinician: Allie Hinton Attending physician on admission: Allie Hinton Consults: 01/02/20 10:32 Consult to Physician [CONS] Routine Comment: Consulting Provider: Allie Hinton Reason For Exam: Physician to Consult Attending physician on discharge: Allie Hinton Discharging clinician: Allie Hinton COURSE Hospital Course Hospital course: 39-year-old male admitted on 01 January with complaint of severe abdominal pain with bloating. Symptoms were acute in onset and became progressively worse. This was followed with nausea and vomiting on Thursday. He had dark tarry bowel movements. He was seen in the emergency room and CT suggests obstruction of the distal jejunum. He was treated with nasogastric decompression for about 12 hours and then had a small bowel follow-through. The contrast did not progress past the mid jejunum after 4 hours so exploratory laparotomy was done. The left laparotomy revealed severe inspissated stool in the entire jejunum but without any mechanical obstruction otherwise. I was able to milk most of the pasty stool into the cecum. X-rays this morning shows the contrast to be in the colon but he still has some proximal small bowel dilation. He is passing flatus. Patient has some personal difficulties at home and relates that he needs to be discharge. Since he is not at the point where he s hould be clinically discharged he is advised that he can sign out AMA and I will see him back in the OFFICE or hospital if he should worsen. He is to take citrate of magnesia one bottle daily until he starts to have regular bowel movements. Discharge diagnosis: small bowel obstruction Secondary discharge diagnosis: chronic kidney disease Gastroesophageal reflux disease Type 2 diabetes mellitus. Reason for admission: small bowel obstruction with nausea and vomiting Procedures: exploratory laparotomy Pertinent studies/significant findings: CT of abdomen and pelvis with contrast Gastrografin small bowel follow-through Complications: 9 Time Spent with Patient Time attestation: Total time spent providing and/or coordinating discharge services: Physical Examination Vital Signs Vital signs: Temp Pulse Resp BP Pulse Ox 99.3 F H 88 18 169/105 97 01/04/20 11:46 01/04/20 11:46 01/04/20 11:46 01/04/20 11:46 01/04/20 11:46 General physical appearance General physical exam: well developed, well nourished, severe distress and severe pain Eyes Eye exam: PERRL and normal ocular movement; negative deviation and loss of movement ENT ENT exam: normal pinna, normal nares, normal mucosa, no hearing loss and no congestion; negative decreased hearing Head Head exam IM: Present atraumatic, normal inspection and normocephalic Neck Neck exam: no masses, no bruits, trachea midline, no lymphadenopathy and no venous distension Cardiovascular Cardiovascular exam IM: Present normal rate and rhythm, RRR, +S1 and +S2; Absent JVD Cardiovascular: Bilateral lower extremity varicosities much worse on the right than on the left Respiratory Respiratory exam: normal expansion, normal respiratory effort, clear to percussion and clear to auscultation Abdomen Abdomen: Present soft, tender, bowel sounds (Hyperactive bowel sounds) and wound (midline surgical incision is unremarkable) Integumentary Integumentary: Present no rash, no growths, no abnormal pigmentation and other (Redundant skin and extremities and trunk due to weight loss) Neurologic Neurologic: Present normal coordination and normal sensation; Absent disoriented Musculoskeletal Musculoskeletal: Present normal gait, normal posture and other Psychiatric Psychiatric: Present oriented to time, oriented to person, oriented to place, speech is normal and memory intact Discharge Plan Patient/Caregiver Discharge Instructions Activity: increase activity as tolerated and resume usual activities as tolerated Diet: Clear Liquid Prescriptions: New magnesium citrate [Citrate of Magnesia] Solution 300 ml PO QDAY PRN (Reason: constipation) Qty: 296 RF: 3 oxycodone 10 mg tablet 10 mg PO QID PRN (Reason: pain) Qty: 60 RF: 0 Continued albuterol sulfate 90 mcg/actuation HFA aerosol inhaler 2 inh INHALATION Q4H PRN (Reason: Shortness Of Breath Or Wheezing) Qty: 1 RF: 6 Follow Up Plan Follow up with: César Gambino DO [Primary Care Provider] - Allie Hinton MD [Physician] - (Patient to make appointment with me in 1 week) Patient Disposition: Home, Self-Care Prognosis: Good Rehab Potential: Good I certify that the patient requires SNF services: No Overall status at discharge: patient is progressing back to baseline Discharge Orders: Discharge Order (Routine); Ordered 01/04/20 Ordered By: Allie Hinton Pending Pending Pending: Diet NPO Diet (NOW) Start ThuDec 31 2125 Hydromorphone HCl (Dilaudid) 1 mg IV Q2HP PRN; Protocol PRN Reason: Per Pain Protocol Last Admin: 01/04/20 13:42 Dose: 1 mg Documented by: Admin: 01/04/20 10:37 Dose: 1 mg Documented by: Admin: 01/04/20 08:20 Dose: 1 mg Documented by: Admin: 01/04/20 05:26 Dose: 1 mg Documented by: Admin: 01/04/20 03:34 Dose: 1 mg Documented by: Admin: 01/04/20 00:11 Dose: 1 mg Documented by: Admin: 01/03/20 21:36 Dose: 1 mg Documented by: Admin: 01/03/20 19:25 Dose: 1 mg Documented by: Admin: 01/03/20 17:30 Dose: 1 mg Documented by: Admin: 01/03/20 15:16 Dose: 1 mg Documented by: Admin: 01/03/20 12:55 Dose: 1 mg Documented by: Admin: 01/03/20 09:50 Dose: 1 mg Documented by: Admin: 01/03/20 07:32 Dose: 1 mg Documented by: Admin: 01/03/20 05:37 Dose: 1 mg Documented by: Admin: 01/03/20 03:46 Dose: 1 mg Documented by: Admin: 01/02/20 23:28 Dose: 1 mg Documented by: Admin: 01/02/20 21:00 Dose: 1 mg Documented by: Admin: 01/02/20 18:44 Dose: 1 mg Documented by: MIRYAM Sodium Chloride (Sodium Chloride 0.9%) 1,000 mls @ 150 mls/hr IV .Q6H40M [facility] Admin: 01/04/20 11:34 Dose: 150 mls/hr Documented by: Admin: 01/04/20 10:02 Dose: Not Given Documented by: Infusion: 01/04/20 07:01 Dose: 150 mls/hr Documented by: Admin: 01/04/20 03:33 Dose: Not Given Documented by: Admin: 01/04/20 00:20 Dose: 150 mls/hr Documented by: Infusion: 01/04/20 00:06 Dose: 150 mls/hr Documented by: Admin: 01/03/20 21:39 Dose: Not Given Documented by: Admin: 01/03/20 17:25 Dose: 150 mls/hr Documented by: Infusion: 01/03/20 17:20 Dose: 0 mls/hr Documented by: RianXF Admin: 01/03/20 07:30 Dose: 150 mls/hr Documented by: Infusion: 01/03/20 07:30 Dose: 150 mls/hr Documented by: Admin: 01/03/20 01:12 Dose: 150 mls/hr Documented by: Admin: 01/02/20 18:47 Dose: Not Given Documented by: MIRYAM Levofloxacin (Levaquin) 750 mg in 150 mls @ 100 mls/hr IV DAILY [place]; Protocol Last Infusion: 01/04/20 09:50 Dose: 0 mls/hr Documented by: Admin: 01/04/20 08:20 Dose: 100 mls/hr Documented by: Infusion: 01/03/20 11:16 Dose: 100 mls/hr Documented by: Admin: 01/03/20 09:46 Dose: 100 mls/hr Documented by: CALEB Metronidazole (Flagyl) 500 mg in 100 mls @ 100 mls/hr IV Q6H [place]; Protocol Last Infusion: 01/04/20 12:33 Dose: 0 mls/hr Documented by: Admin: 01/04/20 11:33 Dose: 100 mls/hr Documented by: Infusion: 01/04/20 06:23 Dose: 0 mls/hr Documented by: Admin: 01/04/20 05:23 Dose: 100 mls/hr Documented by: Infusion: 01/04/20 01:11 Dose: 100 mls/hr Documented by: Admin: 01/04/20 00:11 Dose: 100 mls/hr Documented by: Infusion: 01/03/20 18:30 Dose: 100 mls/hr Documented by: Admin: 01/03/20 17:30 Dose: 100 mls/hr Documented by: Infusion: 01/03/20 13:52 Dose: 0 mls/hr Documented by: Admin: 01/03/20 12:52 Dose: 100 mls/hr Documented by: Infusion: 01/03/20 07:04 Dose: 0 mls/hr Documented by: Admin: 01/03/20 06:04 Dose: 100 mls/hr Documented by: Infusion: 01/03/20 00:33 Dose: 100 mls/hr Documented by: Admin: 01/02/20 23:33 Dose: 100 mls/hr Documented by: MIRYAM Lorazepam (Ativan) 1 mg IV Q2-4HP PRN PRN Reason: ANXIETY/SEDATION Last Admin: 01/03/20 22:34 Dose: 1 mg Documented by: Admin: 01/02/20 23:28 Dose: 1 mg Documented by: Admin: 01/02/20 18:45 Dose: 1 mg Documented by: MIRYAM Methocarbamol (Robaxin) 750 mg IV Q6HP PRN PRN Reason: Muscle Spasm Last Admin: 01/04/20 00:10 Dose: 750 mg Documented by: Admin: 01/03/20 05:36 Dose: 750 mg Documented by: Admin: 01/02/20 23:28 Dose: 750 mg Documented by: Admin: 01/02/20 17:40 Dose: 750 mg Documented by: LAUREN Metoclopramide HCl (Reglan) 10 mg IV Q6 [place] Last Admin: 01/04/20 11:33 Dose: 10 mg Documented by: Admin: 01/04/20 05:23 Dose: 10 mg Documented by: Admin: 01/04/20 00:10 Dose: 10 mg Documented by: Admin: 01/03/20 17:26 Dose: 10 mg Documented by: Admin: 01/03/20 12:55 Dose: 10 mg Documented by: Admin: 01/03/20 05:36 Dose: 10 mg Documented by: Admin: 01/02/20 23:29 Dose: 10 mg Documented by: Admin: 01/02/20 18:45 Dose: 10 mg Documented by: MIRYAM Nicotine (Nicoderm) 21 mg TOPICAL DAILY@1000 [facility] Last Admin: 01/04/20 10:03 Dose: 21 mg Documented by: Admin: 01/03/20 09:46 Dose: 21 mg Documented by: CALEB Pantoprazole Sodium (Protonix) 40 mg IV BIDAC [facility] Last Admin: 01/04/20 08:20 Dose: 40 mg Documented by: Admin: 01/03/20 17:31 Dose: 40 mg Documented by: Admin: 01/03/20 07:11 Dose: 40 mg Documented by: CALEB Shift Summary 01/04/20 04:13 Shift Summary by Grace Putnam Pt is A&O, cooperative and very anxious most of the time. BP elevated, likely due to pain, otherwise VSS. Patient receiving dilauded Q2h and was given Ativan as well. NGT is clamped- was put to suction at beginning of shift for approx. 15min and there was no output and patient denies N/V. Patient is allowed coffee and apple juice with miralax. ML incision has pat and clear film dressing with small SS fluid. Patient is very anxious to dc NGT and to go home. Will update at bedside. Initialized on 01/04/20 04:13 - END OF NOTE
== END 2020-01-04 15:58 | disposition left against medical advice (07) | DRG 358 ==
LOC: ED 16:45 → MEDSUR 21:51
PROVIDERS: ADMIT Family Medicine Adult Medicine; ATTEND Family Medicine Adult Medicine

== ENCOUNTER 2022-09-10 18:32 | Observation (INO) ==
[2022-09-10] MEDS ORDERED: CLINDAMYCIN 600 MG/50 ML NS BAG IV ONE (20:34)
--- NOTE | 2022-09-10 20:39 | Emergency Department Note ---
HPI General Chief complaint: Ear Stated complaint: re-admitted for antibodies Time Seen by Provider: 09/10/22 20:03 Source: patient Mode of arrival: ambulatory Limitations: no limitations History of Present Illness HPI Narrative: Narrative: This is a 42-year-old male ESRD on hemodialysis presents to the emergency d [facility] with bilateral ear pain worse on the right. He reports associated drainage and blood from the right ear his symptoms have been going for about 2 or 3 days he was seen in urgent care yesterday he was started on amoxicillin and prescribed eardrops. The patient was actually seen in the emergency department earlier today he had a CT scan finding concerning for mastoiditis. He was offered admission but had to make some arrangements for his kids so he returns today. He does not believe that he has had any fevers. He last had dialysis yesterday. He denies history of diabetes. Related Data Home Medications Medication Instructions Recorded Confirmed sevelamer carbonate 800 mg tablet 1,600 mg PO TID 09/10/22 09/10/22 Previous Rx's Medication Instructions Recorded cholecalciferol (vitamin D3) 25 50 mcg PO QDAY #180 tabs 02/24/22 mcg (1,000 unit) tablet amlodipine 10 mg tablet 10 mg PO QDAY #90 tabs 03/12/22 furosemide 80 mg tablet 120 mg PO BID #180 tabs 03/12/22 apixaban 5 mg tablet (Eliquis) 5 mg PO BID #180 tabs 04/28/22 carvedilol 25 mg tablet 25 mg PO BID #90 tabs 04/28/22 amoxicillin 500 mg capsule 1,000 mg PO bid #40 caps 09/09/22 ciprofloxacin 0.3 %-dexamethasone 4 drp otic (ear) BID 7 days #7.5 mL 09/09/22 0.1 % ear drops,suspension (Ciprodex) Allergies Allergy/AdvReac Type Severity Reaction Status Date / Time adhesive tape Allergy Intermediate Rash Verified 09/10/22 16:50 Review of Systems ROS ROS Narrative: Narrative: All systems ED: reviewed and negative except as stated. [facility] Narrative Patient History Narrative: Narrative: Medical/Surgical/Family History All Active Problems (Updated 09/11/22 @ 01:57 by Chivo Murphy MD) Acute mastoiditis of right side (Acute) Atrial fibrillation with rapid ventricular response (Acute) Lower back pain (Acute) Change of dressing (Acute) Chest pain (Acute) Hypertensive crisis (Acute) Non-ST elevation [place] (NSTEMI) (Acute) ESRD (end stage renal disease) on dialysis (Acute) Acute renal failure (Acute) Volume overload (Acute) Atrial fibrillation with rapid ventricular response (Acute) Acute pericardial effusion (Acute) Hyperkalemia (Chronic) Secondary hyperparathyroidism of renal origin (Chronic) Acute left-sided low back pain with sciatica (Acute) Morbid obesity with BMI of 50.0-59.9, adult (Acute) Exposure to COVID-19 virus (Acute) 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) IgA nephropathy (Chronic) Localized edema due to fluid overload (Chronic) 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) Chronic kidney disease (CKD) stage G4/A3, severely decreased glomerular filtration rate (GFR) between 15-29 mL/min/1.73 square meter and albuminuria creatinine ratio greater than 300 mg/g (Chronic) Viral URI (Acute) Acute URI (Acute) Nephrotic syndrome (Chronic) Adynamic ileus (Acute) Post-op pain (Acute) SBO (small bowel obstruction) (Acute) Persistent proteinuria (Chronic) Visit for suture removal (Acute) Chronic gastritis (Acute) Cyclical vomiting (Acute) Sinusitis (Acute) Dizziness (Acute) Hypotension (Acute) Fatty liver (Acute) Infected wound (Acute) Anxiety (Acute) Methicillin resistant Staphylococcus aureus infection (Acute) Cellulitis (Acute) Wound healing, delayed (Acute) Postoperative pain (Acute) Accidental drug ingestion (Acute) Dizziness on standing (Acute) Strain of mid-back (Acute) Encounter for Health Maintenance Examination in Adult (Chronic) Numbness and tingling in both hands (Chronic) Foot pain, bilateral (Chronic) Nausea & vomiting (Chronic) Right hand pain (Acute) Migraine (Acute) Gastroenteritis (Acute) GERD (gastroesophageal reflux disease) (Acute) Abdominal pain (Acute) Bloody stools (Acute) Tobacco abuse (Chronic) Vitamin D deficiency (Chronic) Abdominal pain (Chronic) Disorder of back (Chronic) Knee pain (Chronic) Derangement of knee (Chronic) GERD (gastroesophageal reflux disease) (Chronic) Moderate persistent asthma (Chronic) Allergic rhinitis (Chronic) 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) Benign hypertension (Chronic) Partial seizure (Chronic) Morbid obesity (Chronic) Hyperlipidemia (Chronic) Type II diabetes mellitus (Chronic) Hypothyroidism (Chronic) Low back strain (Chronic) Medical History Abdominal pain Abscess Abscess Abscess Abscess and cellulitis Abscess of skin and subcutaneous tissue Abscess of skin or subcutaneous tissue Allergic rhinitis Anal fissure Arthralgia of right knee Benign hypertension Bronchitis Chest pain Contusion Contusion of ribs Costalchondritis Costochondritis Derangement of knee Disorder of back Eczema Encounter for Health Maintenance Examination in Adult 06/22/17 Facial ringworm Foot pain, bilateral Gastroenteritis GERD (gastroesophageal reflux disease) Hyperlipidemia Hypothyroidism Knee pain Low back strain Lumbar spine strain Moderate persistent asthma Morbid obesity Nausea & vomiting Nausea and vomiting in adult patient Non-cardiac chest pain Numbness and tingling in both hands Partial seizure Sinusitis Symptomatic hypotension Type II diabetes mellitus Upper respiratory infection Urticaria Varicose veins of both lower extremities Vitamin D deficiency Surgical History History of colonoscopy (11/27/16) History of exploratory laparotomy 01/02/2020 Status post panniculectomy Family History Mother No problems noted. Father No pertinent family history Social History Smoking Status: Current every day smoker Alcohol Intake Frequency: holiday/special occasion only Substance Use: marijuana Exam Narrative Narrative: Narrative: Vital signs noted General: Obese HEENT: Patient's right ear is erythematous and swollen it is tender in the external auditory canal on examination, he has evidence of tympanic membrane perforation, there is tenderness in the postauricular area there is no erythema or swelling, left TM is erythematous with poor light reflex Neck: Supple, trachea midline Cardiovascular: RRR. No murmur. No rubs. No gallops. Respiratory: No respiratory distress. Breath sounds equal. Lungs clear. Gastrointestinal: Soft. No tenderness Musculoskeletal: No pain. No soft tissue swelling. Good ROM. No signs injury Skin: Multiple tattoos Neurologic: Alert and oriented x3 moves all extremities equally and fully, speech is fluent face is symmetric General Limitations: no limitations Course Vital Signs Vital signs: Vital Signs Temperature 98.7 F 09/10/22 18:49 Pulse Rate 92 H 09/10/22 18:49 Respiratory Rate 18 09/10/22 18:49 Blood Pressure 128/76 09/10/22 18:49 Pulse Oximetry (%) 95 09/10/22 18:49 Oxygen Delivery Method Room Air 09/10/22 18:49 Temperature 98.0 F 09/10/22 23:35 Pulse Rate 78 09/10/22 23:35 Respiratory Rate 16 09/10/22 23:35 Blood Pressure 168/90 09/10/22 23:35 Pulse Oximetry (%) 94 09/10/22 23:35 Oxygen Delivery Method Room Air 09/10/22 23:35 MDM MDM Narrative Medical decision making narrative: Narrative: Patient presents to the emergency department with right ear pain. I did review the patient's CT scan from earlier in the day it was read as mastoiditis along with some other chronic ear findings. The patient denies history of diabetes. The patient's CBC does not show any evidence of leukocytosis. His creatinine is elevated consistent with ESRD. I did speak with Dr. 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 He recommend 24 to 48 hours of IV antibiotics, Ciprodex drops. Given that the patient did have TM perforation is actually a reassuring sign and will decrease the likelihood of abscess or deeper space infection. I have spoke with Dr. Ballard the hospitalist who has agreed to admit the patient. The patient was already given a dose of ceftriaxone earlier I gave a dose of vancomycin here and ordered Ciprodex drops. Lab Data 09/10/22 20:00 09/10/22 20:00 Labs: Lab Results 09/10/22 09/10/22 Range/Units 20:00 20:00 WBC 9.0 (4.5-11.0) K/mcL RBC 3.47 L (4.63-6.08) M/mcL Hgb 10.5 L (13.7-17.5) g/dL Hct 33.3 L (40.1-51.0) % MCV 96.0 (80.0-100.0) fL MCH 30.3 (26.0-34.0) pg MCHC 31.5 (31.0-36.0) g/dL RDW 14.0 (11.5-14.5) % Plt Count 259 (140-440) K/mcL MPV 9.3 (8.8-12.5) fL Immature Gran % (Auto) 1.3 H (0.0-0.5) % Neut % (Auto) 66.0 (38.0-78.0) % Lymph % (Auto) 17.4 (15.5-49.0) % Miller % (Auto) 10.5 (1.0-12.0) % Eos % (Auto) 4.4 (0.0-7.0) % Baso % (Auto) 0.4 (0.0-2.0) % Lymph # (Auto) 1.57 (1.50-4.80) K/mcL Miller # (Auto) 0.95 H (0.10-0.90) K/mcL Eos # (Auto) 0.40 (0.00-0.70) K/mcL Baso # (Auto) 0.04 (0.00-0.30) K/mcL Immature Gran # 0.12 H (0.00-0.05) K/mcl Absolute Neutrophils 5.94 (1.80-8.00) K/mcL Sodium 133 (133-145) mmol/L Potassium 4.8 (3.3-5.1) mmol/L Chloride 96 (96-108) mmol/L Carbon Dioxide 20 L (22-30) mmol/L Anion Gap 17.0 H (8.0-16.0) BUN 77 H (6-20) mg/dL Creatinine 11.7 H* (0.7-1.2) mg/dL GFR Calculation 5 Glucose 108 H (70-105) mg/dL Calcium 9.1 (8.6-10.4) mg/dL Total Bilirubin 0.2 (0.1-1.0) mg/dL AST 19 (<40) U/L ALT 14 (<40) U/L Alkaline Phosphatase 66 (39-117) U/L Total Protein 6.8 (5.9-8.4) gm/dL Albumin 3.6 (3.2-5.2) gm/dL Globulin 3.2 (2.2-3.7) gm/dL Albumin/Globulin Ratio 1.1 (1.0-2.3) Discharge Plan Patient/Caregiver Discharge Instructions Pt seen by PROFILER HAND/PA only: No Clinical Impression: Acute mastoiditis of right side Patient Disposition: Xfer As Outpt/Obs ([facility]) Condition: Good Discharge Date/Time: 09/10/22 22:59 Discharge Location: [facility] Discharge Comment: med surg room 133
[2022-09-10] MEDS ORDERED: VANCOMYCIN 2,000 MG in 0.9 % SODIUM CHLORIDE 500 ML IV ONE (20:56)
[2022-09-10 21:02] LABS: Basophils # (Auto) 0.04 K/mcL (0.00-0.30); Basophils % (Auto) 0.4 % (0.0-2.0); Eosinophils % (Auto) 4.4 % (0.0-7.0); Hematocrit 33.3 % (40.1-51.0); Hemoglobin 10.5 g/dL (13.7-17.5); Lymphocytes # (Auto) 1.57 K/mcL (1.50-4.80); Lymphocytes % (Auto) 17.4 % (15.5-49.0); Mean Corpuscular HGB Conc 31.5 g/dL (31.0-36.0); Mean Platelet Volume 9.3 fL (8.8-12.5); Monocytes # (Auto) 0.95 K/mcL (0.10-0.90); Monocytes % (Auto) 10.5 % (1.0-12.0); Platelet Count 259 K/mcL (140-440); RBC 3.47 M/mcL (4.63-6.08)
[2022-09-10 21:32] LABS: ALT/SGPT 14 U/L (<40); AST/SGOT 19 U/L (<40); Albumin 3.6 gm/dL (3.2-5.2); Albumin/Globulin Ratio 1.1 (1.0-2.3); Alkaline Phosphatase 66 U/L (39-117); Bilirubin,Total 0.2 mg/dL (0.1-1.0); Blood Urea Nitrogen 77 mg/dL (6-20); Calcium 9.1 mg/dL (8.6-10.4); Carbon Dioxide 20 mmol/L (22-30); Chloride 96 mmol/L (96-108); Globulin 3.2 gm/dL (2.2-3.7); Glomerular Filtration Rate 5; Glucose 108 mg/dL (70-105)
--- NOTE | 2022-09-10 21:43 | Internal Med History&Physical ---
HPI History of Present Illness Patient information: Note initiated : 09/10/22 at 9:36 pm Service Date, if different from initiated Date: [] Patient: Yinka Lee a 42 y/o M admitted on for re-admitted for antibodies. Chief Complaint: [] History of present illness: Mr. Lee is a 42 year old M Presents the ED with right ear pain. Patient has a history of end-stage renal disease on dialysis atrial fibrillation on Eliquis Coreg and hypertension on Norvasc. Chronic back pain. Patient states that he woke up feeling fine yesterday no recent illnesses but about mid days suddenly started developing sharp achy right ear pain he is also had drainage of what he describes as bloody pus. He had chills yesterday no fevers. Denies any headaches. No nausea vomiting. In the ED he was evaluated vital signs are stable. No leukocytosis. CT of the head did show right external otitis as well as bilateral otitis media. Also noted was mild right-sided mastoiditis. Case was discussed with Dr. Younger for ENT regarding otitis media who recommended IV antibiotics for several days. Review of Systems: Pertinent positives as above. Denies headache/fever/nausea/vomiting/chest or abdominal pain/cough/dyspnea/diarrhea. Remaining 10 point review of system reviewed negative PHYSICAL EXAM General: Alert, Awake, No acute Distress, obese Eyes/N/T: EOMI, no scleral icterus, PERRL, Pain with manipulation of the auricle, Head/Neck: neck supple, full ROM, normocephalic atraumatic CV: RRR, No murmurs, normal s1/s2 Pulm: Clear b/l, no wheezing/rhonchi/rales, no respiratory distress Abd: soft, nontender, +BS x4 Ext: no clubbing/cyanosis/edema, nontender Neuro: Alert, CN 2-12 grossly intact, no focal deficits, moves all extremities, , sensations intact b/l upper/lower Psychiatric: Skin: warm/dry, normal color PFSH PFSH All Active Problems Atrial fibrillation with rapid ventricular response (Acute) Lower back pain (Acute) Change of dressing (Acute) Chest pain (Acute) Hypertensive crisis (Acute) Non-ST elevation [place] (NSTEMI) (Acute) ESRD (end stage renal disease) on dialysis (Acute) Acute renal failure (Acute) Volume overload (Acute) Atrial fibrillation with rapid ventricular response (Acute) Acute pericardial effusion (Acute) Hyperkalemia (Chronic) Secondary hyperparathyroidism of renal origin (Chronic) Acute left-sided low back pain with sciatica (Acute) Morbid obesity with BMI of 50.0-59.9, adult (Acute) Exposure to COVID-19 virus (Acute) 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) IgA nephropathy (Chronic) Localized edema due to fluid overload (Chronic) 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) Chronic kidney disease (CKD) stage G4/A3, severely decreased glomerular filtration rate (GFR) between 15-29 mL/min/1.73 square meter and albuminuria creatinine ratio greater than 300 mg/g (Chronic) Viral URI (Acute) Acute URI (Acute) Nephrotic syndrome (Chronic) Adynamic ileus (Acute) Post-op pain (Acute) SBO (small bowel obstruction) (Acute) Persistent proteinuria (Chronic) Visit for suture removal (Acute) Chronic gastritis (Acute) Cyclical vomiting (Acute) Sinusitis (Acute) Dizziness (Acute) Hypotension (Acute) Fatty liver (Acute) Infected wound (Acute) Anxiety (Acute) Methicillin resistant Staphylococcus aureus infection (Acute) Cellulitis (Acute) Wound healing, delayed (Acute) Postoperative pain (Acute) Accidental drug ingestion (Acute) Dizziness on standing (Acute) Strain of mid-back (Acute) Encounter for Health Maintenance Examination in Adult (Chronic) Numbness and tingling in both hands (Chronic) Foot pain, bilateral (Chronic) Nausea & vomiting (Chronic) Right hand pain (Acute) Migraine (Acute) Gastroenteritis (Acute) GERD (gastroesophageal reflux disease) (Acute) Abdominal pain (Acute) Bloody stools (Acute) Tobacco abuse (Chronic) Vitamin D deficiency (Chronic) Abdominal pain (Chronic) Disorder of back (Chronic) Knee pain (Chronic) Derangement of knee (Chronic) GERD (gastroesophageal reflux disease) (Chronic) Moderate persistent asthma (Chronic) Allergic rhinitis (Chronic) 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) Benign hypertension (Chronic) Partial seizure (Chronic) Morbid obesity (Chronic) Hyperlipidemia (Chronic) Type II diabetes mellitus (Chronic) Hypothyroidism (Chronic) Low back strain (Chronic) Medical History Abdominal pain Abscess Abscess Abscess Abscess and cellulitis Abscess of skin and subcutaneous tissue Abscess of skin or subcutaneous tissue Allergic rhinitis Anal fissure Arthralgia of right knee Benign hypertension Bronchitis Chest pain Contusion Contusion of ribs Costalchondritis Costochondritis Derangement of knee Disorder of back Eczema Encounter for Health Maintenance Examination in Adult 06/22/17 Facial ringworm Foot pain, bilateral Gastroenteritis GERD (gastroesophageal reflux disease) Hyperlipidemia Hypothyroidism Knee pain Low back strain Lumbar spine strain Moderate persistent asthma Morbid obesity Nausea & vomiting Nausea and vomiting in adult patient Non-cardiac chest pain Numbness and tingling in both hands Partial seizure Sinusitis Symptomatic hypotension Type II diabetes mellitus Upper respiratory infection Urticaria Varicose veins of both lower extremities Vitamin D deficiency Surgical History History of colonoscopy (11/27/16) History of exploratory laparotomy 01/02/2020 Status post panniculectomy Family History Mother No problems noted. Father No pertinent family history Social History smoking status: Current every day smoker tobacco type: cigarettes per day: 8 alcohol intake frequency: holiday/special occasion only substance use type: marijuana MEDS/ALLERGIES Home Medications and Allergies Home Medications Medication Instructions Recorded Confirmed Type cholecalciferol (vitamin D3) 25 50 mcg PO QDAY #180 tabs 02/24/22 09/09/22 Rx mcg (1,000 unit) tablet amlodipine 10 mg tablet 10 mg PO QDAY #90 tabs 03/12/22 09/09/22 Rx furosemide 80 mg tablet 120 mg PO BID #180 tabs 03/12/22 09/09/22 Rx apixaban 5 mg tablet (Eliquis) 5 mg PO BID #180 tabs 04/28/22 09/09/22 Rx carvedilol 25 mg tablet 25 mg PO BID #90 tabs 04/28/22 09/09/22 Rx amoxicillin 500 mg capsule 1,000 mg PO bid #40 caps 09/09/22 09/09/22 Rx ciprofloxacin 0.3 %-dexamethasone 4 drp otic (ear) BID 7 days #7.5 mL 05/02/23 05/02/23 Rx 0.1 % ear drops,suspension (Ciprodex) Allergies Allergy/AdvReac Type Severity Reaction Status Date / Time adhesive tape Allergy Intermediate Rash Verified 09/10/22 16:50 EXAM Constitutional Vitals: Temp Pulse Resp BP Pulse Ox O2 Del Method 98.7 F 82 18 128/76 92 Room Air 09/10/22 18:49 09/10/22 20:20 09/10/22 18:49 09/10/22 18:49 09/10/22 20:20 09/10/22 18:49 DATA Data Completed and Pending Labs: Labs from last 24 hours 09/10/22 09/10/22 20:00 20:00 WBC 9.0 RBC 3.47 L Hgb 10.5 L Hct 33.3 L MCV 96.0 MCH 30.3 MCHC 31.5 RDW 14.0 Plt Count 259 MPV 9.3 Immature Gran % (Auto) 1.3 H Neut % (Auto) 66.0 Lymph % (Auto) 17.4 Ralls % (Auto) 10.5 Eos % (Auto) 4.4 Baso % (Auto) 0.4 Lymph # (Auto) 1.57 Ralls # (Auto) 0.95 H Eos # (Auto) 0.40 Baso # (Auto) 0.04 Immature Gran # 0.12 H Absolute Neutrophils 5.94 Sodium 133 Potassium 4.8 Chloride 96 Carbon Dioxide 20 L Anion Gap 17.0 H BUN 77 H Creatinine 11.7 H* GFR Calculation 5 Glucose 108 H Calcium 9.1 Total Bilirubin 0.2 AST 19 ALT 14 Alkaline Phosphatase 66 Total Protein 6.8 Albumin 3.6 Globulin 3.2 Albumin/Globulin Ratio 1.1 A/P Narrative A/P Narrative: A: *Right mastoiditis: *Right external otitis: *ESRD on HD: Follows with Dr. Rashid *Anemia, chronic: *PAF: On Eliquis and BB *HTN: on Norvasc/BB *Tobacco abuse: *Morbid obesity: bmi 52, Lifestyle modification *Chronic back pain: P: -IV Vanco/flagyl/cefepime, plus cipro otic per Dr. Younger (ENT) -monitor cbc/chemistry -monitor drainage -Nephrology for HD - -cont home norvasc/BB, prn lopressor -Home medication reconciliation -Smoking cessation >3 minutes -ppx: Home apixaban Time Spent With Patient Time: Total time spent is greater than 50% in coordination of care (as documented) at patient's floor/unit and/or counseling patient: Initial: Total time with patient: 75 - 90 minutes
[2022-09-10] MEDS ORDERED: morphine 4 MG/ML VIAL IV PRN (22:33)
[2022-09-10] MEDS ORDERED: POLYETHYLENE GLYCOL 3350 17 GM PACKET PO PRN (23:35)
[2022-09-10] MEDS ORDERED: IPRATROPIUM/ALBUTEROL 3 ML AMPUL.NEB NEB PRN (23:35)
[2022-09-10] MEDS ORDERED: POTASSIUM CHLORIDE 40 MEQ in DEXTROSE 5% IN WATER 500 ML IV PRN (23:35)
[2022-09-10] MEDS ORDERED: metroNIDAZOLE 500 MG/100 ML BAG IV SCH (23:35)
[2022-09-10] MEDS ORDERED: SENNOSIDES 1 TABLET PO PRN (23:35)
[2022-09-10] MEDS ORDERED: ACETAMINOPHEN 325 MG TABLET PO PRN (23:35)
[2022-09-10] MEDS ORDERED: MAGNESIUM SULFATE 2 GM/50 ML BAG IV PRN (23:35)
[2022-09-10] MEDS ORDERED: CEFEPIME 2 GM VIAL IV SCH (23:35)
[2022-09-10] MEDS ORDERED: ONDANSETRON 4 MG/2 ML VIAL IV PRN (23:35)
[2022-09-10] MEDS ORDERED: POTASSIUM CHLORIDE 20 MEQ TABLET PO PRN ×2 (23:35)
[2022-09-10] MEDS ORDERED: METOPROLOL TARTRATE 5 MG/5 ML VIAL IV PRN (23:35)
[2022-09-10] MEDS ORDERED: LABETALOL 5 MG/ML ML IV PRN (23:35)
[2022-09-10] MEDS ORDERED: VANCOMYCIN PER PHARMACY IV ONE (23:35)
--- NOTE | 2022-09-10 23:50 | Nephrology Consult Note ---
HPI Date of Consult Consult Date: 09/10/22 Requesting physician: Sourav Ballard Primary Care Provider: César Gambino DO Consult Narrative Patient Information: Note initiated : 09/10/22 at 11:39 pm Service Date, if different from initiated Date: [] Patient: Yinka Lee 42 y/o M admitted on 09/10/22 for re-admitted for antibodies. 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 Basically near ESRD. Followed by Dr Rashid on MWF schedule but non-compliant with treatment schedule as he would skip treatment (4 of last 10 scheduled treatments) and due to no open chair times as clinic is understaffed, he is underdialyzed. Developed pain in right ear with bloody discharge a few days [employer] and skipped HD yesterday (Thursday) and was seen in ED and Dx with otitis externa and mastoid involvement on Right and CT suggesting bilateral otitis media. To be admitted for IV ABx with good pseudomonal coverage as this is usual bacteria in DM with otitis externa. denies placing foreign onject in ear canal. Failed oral ABx and antibiotic ear drops. Orders written for acute inpatient HD on and Thursday due to his noncompliance. Blames his missed treatments on being a single father. Orders written. Home Rx Constitutional Constitutional: Absent fever(s) EENT Ears: Present ear discharge and ear pain Cardiovascular Additional comments: Hospital medicine ROS reviewed Respiratory Respiratory: Present snoring Additional comments: Sleep apnea to my eye Gastrointestinal Additional comments: Hospital medicine ROS reviewed Musculoskeletal Additional comments: [facility] medicine ROS reviewed Integumentary Additional comments: Tattoo Neurological Additional comments: [facility] medicine ROS reviewed Endocrine Additional comments: morbid obesity Hematologic/Lymphatic Additional comments: anemia of ESRD Allergic/Immunologic Additional comments: Hospital medicine ROS reviewed PFSH PFSH All Active Problems (Updated 09/11/22 @ 08:44 by Chris Zheng MD) ESRD on hemodialysis (Acute) Non-compliance with renal dialysis (Acute) Otitis externa (Acute) Acute mastoiditis of right side (Acute) Secondary hyperparathyroidism of renal origin (Chronic) Low back strain (Chronic) Hypothyroidism (Chronic) Type II diabetes mellitus (Chronic) Hyperlipidemia (Chronic) Morbid obesity (Chronic) Partial seizure (Chronic) Benign hypertension (Chronic) 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) Allergic rhinitis (Chronic) Moderate persistent asthma (Chronic) GERD (gastroesophageal reflux disease) (Chronic) Derangement of knee (Chronic) Knee pain (Chronic) Disorder of back (Chronic) Abdominal pain (Chronic) Vitamin D deficiency (Chronic) Tobacco abuse (Chronic) Migraine (Acute) Gastroenteritis (Acute) GERD (gastroesophageal reflux disease) (Acute) Bloody stools (Acute) Abdominal pain (Acute) Chronic gastritis (Acute) Cyclical vomiting (Acute) Sinusitis (Acute) Right hand pain (Acute) Nausea & vomiting (Chronic) Foot pain, bilateral (Chronic) Numbness and tingling in both hands (Chronic) Dizziness (Acute) Hypotension (Acute) Encounter for Health Maintenance Examination in Adult (Chronic) Fatty liver (Acute) Infected wound (Acute) Anxiety (Acute) Methicillin resistant Staphylococcus aureus infection (Acute) Cellulitis (Acute) Wound healing, delayed (Acute) Postoperative pain (Acute) Accidental drug ingestion (Acute) Dizziness on standing (Acute) Strain of mid-back (Acute) Visit for suture removal (Acute) Persistent proteinuria (Chronic) SBO (small bowel obstruction) (Acute) Adynamic ileus (Acute) Post-op pain (Acute) Nephrotic syndrome (Chronic) Acute URI (Acute) Viral URI (Acute) Chronic kidney disease (CKD) stage G4/A3, severely decreased glomerular filtration rate (GFR) between 15-29 mL/min/1.73 square meter and albuminuria creatinine ratio greater than 300 mg/g (Chronic) 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) Localized edema due to fluid overload (Chronic) IgA nephropathy (Chronic) 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) Exposure to COVID-19 virus (Acute) Acute left-sided low back pain with sciatica (Acute) Morbid obesity with BMI of 50.0-59.9, adult (Acute) Hyperkalemia (Chronic) Acute renal failure (Acute) Volume overload (Acute) Atrial fibrillation with rapid ventricular response (Acute) Acute pericardial effusion (Acute) ESRD (end stage renal disease) on dialysis (Acute) Atrial fibrillation with rapid ventricular response (Acute) Lower back pain (Acute) Change of dressing (Acute) Chest pain (Acute) Hypertensive crisis (Acute) Non-ST elevation IA (NSTEMI) (Acute) Acute mastoiditis (Acute) Medical History Abdominal pain Abscess Abscess Abscess Abscess and cellulitis Abscess of skin and subcutaneous tissue Abscess of skin or subcutaneous tissue Allergic rhinitis Anal fissure Arthralgia of right knee Benign hypertension Bronchitis Chest pain Contusion Contusion of ribs Costalchondritis Costochondritis Derangement of knee Disorder of back Eczema Encounter for Health Maintenance Examination in Adult 06/22/17 Facial ringworm Foot pain, bilateral Gastroenteritis GERD (gastroesophageal reflux disease) Hyperlipidemia Hypothyroidism Knee pain Low back strain Lumbar spine strain Moderate persistent asthma Morbid obesity Nausea & vomiting Nausea and vomiting in adult patient Non-cardiac chest pain Numbness and tingling in both hands Partial seizure Sinusitis Symptomatic hypotension Type II diabetes mellitus Upper respiratory infection Urticaria Varicose veins of both lower extremities Vitamin D deficiency Surgical History History of colonoscopy (11/27/16) History of exploratory laparotomy 01/02/2020 Status post panniculectomy Family History Mother No problems noted. Father No pertinent family history Social History smoking status: Current every day smoker tobacco type: cigarettes per day: 8 smoking status start date: 05/11/92 alcohol intake frequency: holiday/special occasion only substance use type: marijuana MEDS/ALLERGIES Home Medications and Allergies Home Medications Medication Instructions Recorded Confirmed Type cholecalciferol (vitamin D3) 25 50 mcg PO QDAY #180 tabs 02/24/22 09/10/22 Rx mcg (1,000 unit) tablet amlodipine 10 mg tablet 10 mg PO QDAY #90 tabs 03/12/22 09/10/22 Rx furosemide 80 mg tablet 120 mg PO BID #180 tabs 03/12/22 09/10/22 Rx apixaban 5 mg tablet (Eliquis) 5 mg PO BID #180 tabs 04/28/22 09/10/22 Rx carvedilol 25 mg tablet 25 mg PO BID #90 tabs 04/28/22 09/10/22 Rx amoxicillin 500 mg capsule 1,000 mg PO bid #40 caps 09/09/22 09/10/22 Rx ciprofloxacin 0.3 %-dexamethasone 4 drp otic (ear) BID 7 days #7.5 mL 09/09/22 09/10/22 Rx 0.1 % ear drops,suspension (Ciprodex) sevelamer carbonate 800 mg tablet 1,600 mg PO TID 09/10/22 09/10/22 History Allergies Allergy/AdvReac Type Severity Reaction Status Date / Time adhesive tape Allergy Intermediate Rash Verified 09/10/22 16:50 Physical Examination Vital Signs Vital signs: Temp Pulse Resp BP Pulse Ox O2 Del Method 36.1 C 81 14 138/78 96 Room Air 09/10/22 22:49 09/10/22 22:49 09/10/22 22:49 09/10/22 22:49 09/10/22 22:49 09/10/22 18:49 General Appearance General appearance: obese EENT EENT: ATNC and TM abnormal (right ear drainage) Neck Neck: no JVD Respiratory Respiratory: clear Cardiovascular Cardiology: no murmurs and edema Gastrointestinal Gastrointestinal: normoactive bowel sounds and obese Integumentary Integumentary: no rash Neurologic Neurologic: no focal deficit, no asterixis, alert and oriented x3 and CN 3-12 intact Psychiatric Psychiatric: mood/affect appropriate Additional Exam Additional exam: Right IJ dual lumen HD catheter Slowly maturing left cimmino AVF (+) thrill Results Lab Results 09/11/22 05:47 09/11/22 05:47 Lab results: Most recent lab results Calcium 9.1 mg/dL (8.6-10.4) 09/10/22 20:00 A/P Assessment and plan (1) ESRD on hemodialysis: Assessment and plan: 40% missed Tx due to being a "single Dad" now caught in the era of a full dialysis center with no ability to reschedule for missed treatments. Needs fluid removed as BNP elevated. Plan: HD today and tomorrow Status: Acute (2) Otitis externa: Assessment and plan: Failed outpatient Tx Plan: IV abx with good pseudomonas coverage Status: Acute (3) Acute mastoiditis of right side: Plan: ABx Status: Acute (4) Non-compliance with renal dialysis: Assessment and plan: He is shortening his time on earth by missing 40% of his treatments and elevated BMI contributes to increased dialysis need, not less Plan: Patient advised but reticent to accept warning Status: Acute (5) Secondary hyperparathyroidism of renal origin: Assessment and plan: I assume non compliance with PO4 binder. Plan: Increase sevelamer TID with meals Status: Chronic Plan As above Narrative A/P Narrative: 1. ESRD HD 09/11/2022 and 09/12/2022, then MWF 2. Increase Sevelamer 3. Needs 5 -10 kg U/F over 2 days 4. ABx per hospital medicine 5. As this is not a dialysis related infection, no abx can be given at dialysis Plan of Treatment: See above Time Spent With Patient Time: Total time spent is greater than 50% in coordination of care (as documented) at patient's floor/unit and/or counseling patient: Initial: Total time with patient: 55 - 74 minutes
[2022-09-11] MEDS: 0.9 % SODIUM CHLORIDE 10 ML SYRINGE IV SCH ×4 (00:37→22:09)
[2022-09-11] MEDS ORDERED: CEFEPIME 1 GM VIAL ONE (01:00)
[2022-09-11] MEDS ORDERED: metroNIDAZOLE 100 ML IV ONE (01:00)
[2022-09-11] MEDS: morphine 4 MG/ML VIAL IV PRN ×3 (02:02→20:16)
[2022-09-11 06:43] LABS: Basophils # (Auto) 0.07 K/mcL (0.00-0.30); Basophils % (Auto) 0.8 % (0.0-2.0); Eosinophils # (Auto) 0.41 K/mcL (0.00-0.70); Eosinophils % (Auto) 4.5 % (0.0-7.0); Hematocrit 37.9 % (40.1-51.0); Lymphocytes # (Auto) 1.22 K/mcL (1.50-4.80); Lymphocytes % (Auto) 13.4 % (15.5-49.0); Mean Cell Volume 103.6 fL (80.0-100.0); Mean Platelet Volume 8.6 fL (8.8-12.5); Monocytes # (Auto) 1.05 K/mcL (0.10-0.90); Monocytes % (Auto) 11.6 % (1.0-12.0); Neutrophils % (Auto) 68.2 % (38.0-78.0); Platelet Count 227 K/mcL (140-440); RBC 3.66 M/mcL (4.63-6.08); Red Cell Distribution Width 14.1 % (11.5-14.5); WBC 9.1 K/mcL (4.5-11.0)
[2022-09-11 07:33] LABS: ALT/SGPT 14 U/L (<40); AST/SGOT 16 U/L (<40); Albumin 3.6 gm/dL (3.2-5.2); Albumin/Globulin Ratio 1.1 (1.0-2.3); Alkaline Phosphatase 63 U/L (39-117); Bilirubin,Direct < 0.2 mg/dL (0-0.3); Bilirubin,Total 0.2 mg/dL (0.1-1.0); Blood Urea Nitrogen 80 mg/dL (6-20); Calcium 9.3 mg/dL (8.6-10.4); Carbon Dioxide 18 mmol/L (22-30); Chloride 99 mmol/L (96-108); Globulin 3.3 gm/dL (2.2-3.7); Glomerular Filtration Rate 4; Glucose 127 mg/dL (70-105); Lactate Dehydrogenase 307 U/L (135-225); Phosphorous 10.6 mg/dL (2.5-4.5); Triglycerides 136 mg/dL (<150); Uric Acid 5.3 mg/dL (2.5-8.0)
[2022-09-11] MEDS ORDERED: SEVELAMER 800 MG TABLET PO SCH (08:00)
[2022-09-11] MEDS: CEFEPIME 1 GM VIAL IV SCH (08:10)
[2022-09-11] MEDS: DOCUSATE SODIUM 100 MG CAPSULE PO SCH ×2 (08:10→20:16)
[2022-09-11] MEDS: HYDROcodone/APAP 5/325MG TABLET PO PRN ×4 (08:11→21:40)
[2022-09-11] MEDS: metroNIDAZOLE 500 MG/100 ML BAG IV SCH ×4 (08:11→22:40)
--- NOTE | 2022-09-11 08:27 | Internal Med Progress Note ---
SUBJECTIVE Subjective Patient information: Note initiated : 09/11/22 at 8:23 am Service Date, if different from initiated Date: [] Patient: Yinka Lee 42 y/o M admitted on 09/10/22 for re-admitted for antibodies. Chief Complaint: [] Interval history: History of present illness: Mr. Lee is a 42 year old M Presents the ED with right ear pain. Patient has a history of end-stage renal disease on dialysis atrial fibrillation on Eliquis Coreg and hypertension on Norvasc. Chronic back pain. Patient states that he woke up feeling fine yesterday no recent illnesses but about mid days suddenly started developing sharp achy right ear pain he is also had drainage of what he describes as bloody pus. He had chills yesterday no fevers. Denies any headaches. No nausea vomiting. In the ED he was evaluated vital signs are stable. No leukocytosis. CT of the head did show right external otitis as well as bilateral otitis media. Also noted was mild right-sided mastoiditis. Case was discussed with Dr. Younger for ENT regarding otitis media who recommended IV antibiotics for several days. 5/ Patient ear pain feeling little better today. No leukocytosis on follow-up labs. Patient seen by nephrology for hemodialysis. Continue IV antibiotics renally dosed by pharmacy. Review of Systems: Pertinent positives as above. Denies headache/fever/nausea/vomiting/chest or abdominal pain/cough/dyspnea/diarrhea. PHYSICAL EXAM General: Alert, Awake, No acute Distress, obese Eyes/N/T: EOMI, no scleral icterus, Pain with manipulation of the auricle, Head/Neck: neck supple, full ROM, CV: RRR, No murmurs, Pulm: Clear b/l, no wheezing/rhonchi/rales, no respiratory distress Abd: soft, nontender, +BS x4 Ext: no clubbing/cyanosis/edema, nontender Neuro: Alert, no focal deficits, moves all extremities, , sensations intact b/l upper/lower Psychiatric: Skin: warm/dry, normal color Constitutional Vitals: Vital Signs Temp Pulse Resp BP Pulse Ox O2 Del Method 97.3 F 100 H 16 133/69 98 Room Air 09/11/22 07:50 09/11/22 07:50 09/11/22 07:50 09/11/22 03:15 09/11/22 07:50 09/11/22 07:50 Period Temp Pulse Resp BP Sys/[place] Pulse Ox O2 Del Method O2 Flow Rate Last 24 Hr 97 F-98.7 F 66-100 14-20 128-182/69-93 92-98 Room Air-Room Air Intake and Output 09/10/22 09/11/22 09/11/22 19:59 03:59 11:59 Intake Total 600 Output Total 425 400 Balance 175 -400 Weight 176.901 kg 183.115 kg Intake & Output: Intake & Output 09/10/22 09/11/22 09/11/22 19:59 03:59 11:59 Intake Total 600 Output Total 425 400 Balance 175 -400 Weight 176.901 kg 183.115 kg Intake: IV 600 Vancomycin 2,000 mg In Sodium 500 Chloride 0.9% 500 ml @ 250 mls/ hr IV ONCE ONE Rx#:[id number] Oral 0 Output: Void Amount 425 400 Other: Urine Appearance Clear Clear Urine Color Yellow Yellow Pale OBJ DATA Labs 09/11/22 05:47 09/11/22 05:47 Labs: Abnormal Lab Results 09/11/22 09/11/22 09/10/22 05:47 05:47 20:00 RBC 3.66 L Hgb 11.0 L Hct 37.9 L MCV 103.6 H MCHC 29.0 L MPV 8.6 L Immature Gran % (Auto) 1.5 H Lymph % (Auto) 13.4 L Lymph # (Auto) 1.22 L [place] # (Auto) 1.05 H Immature Gran # 0.14 H Carbon Dioxide 18 L 20 L Anion Gap 20.0 H 17.0 H BUN 80 H 77 H Creatinine 12.3 H* 11.7 H* Glucose 127 H 108 H Phosphorus 10.6 H* Magnesium 2.8 H Lactate Dehydrogenase 307 H 09/10/22 20:00 RBC 3.47 L Hgb 10.5 L Hct 33.3 L MCV MCHC MPV Immature Gran % (Auto) 1.3 H Lymph % (Auto) Lymph # (Auto) [place] # (Auto) 0.95 H Immature Gran # 0.12 H Carbon Dioxide Anion Gap BUN Creatinine Glucose Phosphorus Magnesium Lactate Dehydrogenase Meds: Medications Acetaminophen (Acetaminophen 325 Mg Tablet) 650 mg PO Q6HP PRN; Protocol PRN Reason: Per Pain Protocol/Fever > 101 Hydrocodone Bitart/Acetaminophen (Hydrocodone/Apap 5/325mg Tablet) 1 tab PO Q4HP PRN PRN Reason: PAIN LEVEL 3-6 Last Admin: 09/11/22 08:11 Dose: 1 tab Albuterol/Ipratropium (Ipratropium/Albuterol 3 Ml Ampul.Neb) 3 ml NEB Q4HP PRN PRN Reason: Shortness Of Breath Cefepime HCl (Cefepime 1 Gm Vial) 0.5 gm IV Q24H FRANCISCO; Protocol Last Admin: 09/11/22 08:10 Dose: 0.5 gm Ciprofloxacin/Dexamethasone (Ciprofloxacin/Dexameth Otic Bottle 7.5ml) 4 gtt AD BID FRANCISCO Docusate Sodium (Docusate Sodium 100 Mg Capsule) 100 mg PO BID FRANCISCO Last Admin: 09/11/22 08:10 Dose: 100 mg Potassium Chloride 40 meq/ (Dextrose) 520 mls @ 130 mls/hr IV UD PRN PRN Reason: Potassium < 3 Magnesium Sulfate (Magnesium Sulfate) 2 gm in 50 mls @ 50 mls/hr IV UD PRN PRN Reason: Magnesium </= 1.6 Metronidazole (Flagyl) 500 mg in 100 mls @ 100 mls/hr IV Q8H FRANCISCO; Protocol Last Admin: 09/11/22 08:11 Dose: 100 mls/hr Labetalol HCl (Labetalol 5 Mg/Ml Ml) 0 mg IV Q2HP PRN PRN Reason: Hypertension Metoprolol Tartrate (Metoprolol Tartrate 5 Mg/5 Ml Vial) 5 mg IV Q2HP PRN PRN Reason: Tachyarrhythmias HR>110 Morphine Sulfate (Morphine 4 Mg/Ml Vial) 0 mg IV Q3HP PRN PRN Reason: Pain Last Admin: 09/11/22 05:44 Dose: 3 mg Ondansetron HCl (Ondansetron 4 Mg/2 Ml Vial) 4 mg IV Q4HP PRN PRN Reason: Nausea And Vomiting Polyethylene Glycol (Polyethylene Glycol 3350 17 Gm Packet) 17 gm PO DAILYP PRN PRN Reason: Constipation Potassium Chloride (Potassium Chloride 20 Meq Tablet) 40 meq PO UD PRN PRN Reason: Potssium is 3-3.5 Potassium Chloride (Potassium Chloride 20 Meq Tablet) 40 meq PO UD PRN PRN Reason: Potassium < 3 Senna (Sennosides 1 Tablet) 2 tab PO DAILYP PRN PRN Reason: Constipation Sodium Chloride (0.9 % Sodium Chloride 10 Ml Syringe) 10 ml IV Q8 FRANCISCO Last Admin: 09/11/22 05:47 Dose: 10 ml Vancomycin HCl (Vancomycin Per Pharmacy) 1 order IV ONCE ONE; Protocol Stop: 09/10/22 23:36 Last Admin: 09/11/22 00:36 Dose: 1 order A/P Narrative A/P Narrative: A: *Right mastoiditis: *Right external otitis: *ESRD on HD: Follows with Dr. Rashid *Anemia, chronic: *PAF: On Eliquis and BB *HTN: on Norvasc/BB *Tobacco abuse: *Morbid obesity: bmi 52, Lifestyle modification *Chronic back pain: P: -IV Vanco/flagyl/cefepime, plus cipro otic per Dr. Younger (ENT) -monitor cbc/chemistry -monitor drainage -Nephrology for HD -cont home norvasc/BB, prn lopressor -Home medication reconciliation -Smoking cessation counseling -ppx: Home apixaban Plan of Treatment: See above Time Spent With Patient Time: Total time spent is greater than 50% in coordination of care (as documented) at patient's floor/unit and/or counseling patient: Subsequent: Total time with patient: 35 - 49 minutes QUALITY Stroke Symptom Onset Unknown: No VTE Deep Vein Thrombosis/Pulmonary Embolism Present on Admission: No
[2022-09-11] MEDS ORDERED: CIPROFLOXACIN/DEXAMETH OTIC BOTTLE 7.5ML AD SCH (09:00)
--- NOTE | 2022-09-11 10:13 | Discharge Summary ---
Discharge Provider Provider IMPORTANT FOLLOW-UP INFORMATION FOR PCP: Patient information: Note initiated : 09/11/22 at 10:11 am Service Date, if different from initiated Date: [] Patient: Yinka Lee 42 y/o M admitted on 09/10/22 for re-admitted for antibodies. Chief Complaint: [] Date of admission: 09/10/22 22:49 Discharge date: 09/12/22 Primary care physician: César Gambino DO Consults: 09/10/22 Consult to Physician [CONS] Stat Comment: Consulting Provider: Hussain Younger Reason For Exam: Physician to Consult Consult to Physician [CONS] Stat Comment: Consulting Provider: Sourav Ballard Reason For Exam: Physician to Consult 09/10/22 23:35 Consult to Physician [CONS] Routine Comment: Consulting Provider: Chris Zheng Reason For Exam: Physician to Consult COURSE Hospital Course Hospital course: History of present illness: Mr. Lee is a 42 year old M Presents the ED with right ear pain. Patient has a history of end-stage renal disease on dialysis atrial fibrillation on Eliquis Coreg and hypertension on Norvasc. Chronic back pain. Patient states that he woke up feeling fine yesterday no recent illnesses but about mid days suddenly started developing sharp achy right ear pain he is also had drainage of what he describes as bloody pus. He had chills yesterday no fevers. Denies any headaches. No nausea vomiting. In the ED he was evaluated vital signs are stable. No leukocytosis. CT of the head did show right external otitis as well as bilateral otitis media. Also noted was mild right-sided mastoiditis. Case was discussed with Dr. Younger for ENT regarding otitis media who recommended IV antibiotics for several days. 5/ Patient ear pain feeling little better today. No leukocytosis on follow-up labs. Patient seen by nephrology for hemodialysis. Continue IV antibiotics renally dosed by pharmacy. 5/5 Patient feeling much better. Stable for discharge. A: *Right mastoiditis: *Right external otitis: *ESRD on HD: Follows with Dr. Rashid *Anemia, chronic: *PAF: On Eliquis and BB *HTN: on Norvasc/BB *Tobacco abuse: *Morbid obesity: bmi 52, Lifestyle modification *Chronic back pain: P: -Augmentin, cipro otic per Dr. Younger (ENT). 2-week course of oral abx -f/u with Dr. Younger Discharge diagnosis: Right mastoiditis otitis externus Secondary discharge diagnosis: End-stage renal disease anemia paroxysmal A-fib hypertension tobacco abuse morbid obesity chronic back pain Time Spent with Patient Time attestation: Total time spent providing and/or coordinating discharge services: Time spent: Greater than 30 minutes EXAM Constitutional Vitals: Temp Pulse Resp BP Pulse Ox O2 Del Method 97.3 F 100 H 16 133/69 98 Room Air 09/11/22 07:50 09/11/22 07:50 09/11/22 07:50 09/11/22 03:15 09/11/22 07:50 09/11/22 07:50 Discharge Data Data Completed and Pending Labs on day of discharge: Labs from last 24 hours 09/11/22 09/11/22 09/10/22 05:47 05:47 20:00 WBC 9.1 RBC 3.66 L Hgb 11.0 L Hct 37.9 L MCV 103.6 H MCH 30.1 MCHC 29.0 L RDW 14.1 Plt Count 227 MPV 8.6 L Immature Gran % (Auto) 1.5 H Neut % (Auto) 68.2 Lymph % (Auto) 13.4 L [place] % (Auto) 11.6 Eos % (Auto) 4.5 Baso % (Auto) 0.8 Lymph # (Auto) 1.22 L [place] # (Auto) 1.05 H Eos # (Auto) 0.41 Baso # (Auto) 0.07 Immature Gran # 0.14 H Absolute Neutrophils 6.19 Sodium 137 133 Potassium 4.8 4.8 Chloride 99 96 Carbon Dioxide 18 L 20 L Anion Gap 20.0 H 17.0 H BUN 80 H 77 H Creatinine 12.3 H* 11.7 H* GFR Calculation 4 5 Glucose 127 H 108 H Uric Acid 5.3 Calcium 9.3 9.1 Phosphorus 10.6 H* Magnesium 2.8 H Total Bilirubin 0.2 0.2 Direct Bilirubin < 0.2 GGT 8 AST 16 19 ALT 14 14 Alkaline Phosphatase 63 66 Lactate Dehydrogenase 307 H Total Protein 6.9 6.8 Albumin 3.6 3.6 Globulin 3.3 3.2 Albumin/Globulin Ratio 1.1 1.1 Triglycerides 136 09/10/22 20:00 WBC 9.0 RBC 3.47 L Hgb 10.5 L Hct 33.3 L MCV 96.0 MCH 30.3 MCHC 31.5 RDW 14.0 Plt Count 259 MPV 9.3 Immature Gran % (Auto) 1.3 H Neut % (Auto) 66.0 Lymph % (Auto) 17.4 [place] % (Auto) 10.5 Eos % (Auto) 4.4 Baso % (Auto) 0.4 Lymph # (Auto) 1.57 [place] # (Auto) 0.95 H Eos # (Auto) 0.40 Baso # (Auto) 0.04 Immature Gran # 0.12 H Absolute Neutrophils 5.94 Sodium Potassium Chloride Carbon Dioxide Anion Gap BUN Creatinine GFR Calculation Glucose Uric Acid Calcium Phosphorus Magnesium Total Bilirubin Direct Bilirubin GGT AST ALT Alkaline Phosphatase Lactate Dehydrogenase Total Protein Albumin Globulin Albumin/Globulin Ratio Triglycerides Discharge Plan Patient/Caregiver Discharge Instructions Activity: increase activity as tolerated Diet: Renal Prescriptions: New amoxicillin-pot clavulanate 500-125 mg tablet 1 tab PO QDAY Qty: 14 0RF Rx Instructions: take after dialysis on those days ciprofloxacin-dexamethasone [Ciprodex] 0.3-0.1 % drops,suspension 4 drp otic (ear) BID 6 Days Qty: 7.5 0RF Rx Instructions: to right ear Continued cholecalciferol (vitamin D3) 25 mcg (1,000 unit) tablet 50 mcg PO QDAY Qty: 180 3RF amlodipine 10 mg tablet 10 mg PO QDAY Qty: 90 3RF furosemide 80 mg tablet 120 mg PO BID Qty: 180 3RF Eliquis 5 mg tablet 5 mg PO BID Qty: 180 3RF carvedilol 25 mg tablet 25 mg PO BID Qty: 90 3RF Rx Instructions: must administer with a meal/food sevelamer carbonate 800 mg tablet 1,600 mg PO TID Discontinued amoxicillin 500 mg capsule 1,000 mg PO bid Qty: 40 0RF Rx Instructions: 2 tablets po twice daily ciprofloxacin-dexamethasone [Ciprodex] 0.3-0.1 % drops,suspension 4 drp otic (ear) BID 7 Days Qty: 7.5 0RF Follow Up Plan Follow up with: Hussain Younger MD [Physician] - César Gambino DO [Primary Care Provider] - Patient Disposition: Home, Self-Care Plan of Treatment: See above Prognosis: Good Overall status at discharge: patient is progressing back to baseline Discharge Orders: Discharge Order (Routine); Ordered 09/12/22 Ordered By: Sourav Ballard [facility] VTE Deep Vein Thrombosis/Pulmonary Embolism Present on Admission: No
[2022-09-11] MEDS ORDERED: VANCOMYCIN PER PHARMACY IV SCH (10:15)
[2022-09-11] MEDS: SEVELAMER 800 MG TABLET PO SCH ×2 (11:58→15:29)
[2022-09-11] MEDS: APIXABAN 5 MG TABLET PO SCH ×2 (11:58→20:16)
[2022-09-11] MEDS: CIPROFLOXACIN/DEXAMETH OTIC BOTTLE 7.5ML AD SCH ×2 (14:54→20:15)
[2022-09-11] MEDS: CARVEDILOL 12.5 MG TABLET PO SCH ×2 (15:30→15:31)
[2022-09-11] MEDS: FUROSEMIDE 80 MG TABLET PO SCH ×2 (15:30→20:16)
[2022-09-11] MEDS: amLODIPine 10 MG TABLET PO SCH (15:30)
[2022-09-11 16:21] LABS: Vancomycin,Random 10.8 ug/mL
[2022-09-11] MEDS ORDERED: VANCOMYCIN 1,500 MG in 0.9 % SODIUM CHLORIDE 500 ML IV ONE (18:00)
[2022-09-12] MEDS: morphine 4 MG/ML VIAL IV PRN (01:01)
[2022-09-12] MEDS: 0.9 % SODIUM CHLORIDE 10 ML SYRINGE IV SCH (06:00)
[2022-09-12] MEDS: metroNIDAZOLE 500 MG/100 ML BAG IV SCH (06:00)
[2022-09-12] MEDS: amLODIPine 10 MG TABLET PO SCH (08:19)
[2022-09-12] MEDS: CARVEDILOL 12.5 MG TABLET PO SCH (08:19)
[2022-09-12] MEDS: DOCUSATE SODIUM 100 MG CAPSULE PO SCH (08:19)
[2022-09-12] MEDS: APIXABAN 5 MG TABLET PO SCH (08:19)
[2022-09-12] MEDS: SEVELAMER 800 MG TABLET PO SCH (08:19)
[2022-09-12] MEDS: FUROSEMIDE 80 MG TABLET PO SCH (08:19)
[2022-09-12] MEDS: HYDROcodone/APAP 5/325MG TABLET PO PRN (08:20)
[2022-09-12] MEDS: CEFEPIME 1 GM VIAL IV SCH (08:20)
[2022-09-12] MEDS: CIPROFLOXACIN/DEXAMETH OTIC BOTTLE 7.5ML AD SCH (08:20)
== END 2022-09-12 09:20 | disposition home or self-care (01) ==
LOC: ED 18:32 → MEDSUR 18:32
PROVIDERS: ADMIT Internal Medicine; ATTEND Internal Medicine